=== PATIENT | female | born 1945 | race Caucasian/White ===

== ENCOUNTER 2020-04-20 10:37 | Outpatient (CLI) | payer MEDICARE, SELFPAY ==
--- NOTE | ~2020-04-20 | MM_ITS ---
EXAMINATION: MM screening evy BI w red HISTORY: Screening mammogram TECHNIQUE: Craniocaudal and mediolateral oblique 3-D tomosynthesis images were obtained and synthetic 2-D images were generated. CAD analysis was submitted and interpreted. COMPARISON: 07/18/2018, 11/29/2016, 01/22/2015 bilateral digital screening mammogram examinations BREAST PARENCHYMAL COMPOSITION: There are scattered areas of fibroglandular density. FINDINGS: There is no evidence of suspicious mass, calcification, or architectural distortion to sugg est malignancy in either breast. There has been no suspicious interval change. IMPRESSION: 1. No mammographic evidence of malignancy. 2. Recommend routine screening mammography in one year. BI-RADS Category 1: Negative Reviewed, dictated and finalized at location A.
== END 2020-04-20 10:38 | disposition home or self-care (01) ==
PROVIDERS: PCP Internal Medicine; Visit Provider Internal Medicine
DX: Z12.31 Encounter for screening mammogram for malignant neoplasm of breast (principal)
CPT/HCPCS: 77063; 77067

== ENCOUNTER 2021-05-18 11:00 | Outpatient (RCR) | payer MEDICARE, SELFPAY ==
--- NOTE | 2021-04-13 12:40 | PTOPEVAL ---
Thank you for referring Alma Akbar to [facility].? The patient is scheduled to be seen for therapy? 2 x/week for 5 weeks. Please review, sign, date and return this plan of care NAOMI. I agree with and certify that the following plan of care is medically necessary. Referring Physician Date Attending Provider: Gemma Sneed PA-C Diagnosis hamstring and calf pain - right Onset 08/19 Additional Evaluation Detail She walks 4 miles a day. Subjective Information States she has had a Query Text:As Reported By Patient/ progression of her limitations Family with her vision. In 08/19 she fell over the vacuum lamp cleaner street light, landing on her knees. The pain became worse. She did not see a MD until 04/01/21. She c/o increased pain after prolonged sitting, negotiating steps, squatting motion, transfer in/out car, moving in bed. The pain will wake her at night. She reports improved pain with the medication from the MD. She also had a fall last week when she tripped over something on the floor. She was told the tendon in the back of her leg is pulled . Diagnostic Tests X-Rays For This Problem Yes: post apect of knee joint has an issue? Pain Assessment Left Leg(s) Reported Pain Level 0 Pain Frequency Intermittent Lowest Pain Intensity 0 Greatest Pain Intensity 5 Pain Aggravating Factors Prolonged Position Right Posterior Leg(s) Reported Pain Level 1 Pain Description Numbness Pain Frequency Chronic Lowest Pain Intensity 1 Greatest Pain Intensity 10 Pain Aggravating Factors Exercise/Activity,Prolonged Position,Sitting,Stair Climbing,Weight Bearing/ Standing Lower Extremity Range of Motion Knee Range of Motion Right Knee Flexion Range of Motion - Active 120 Knee Extension Range of Motion - Active 0 Left Knee Flexion Range of Motion - Active 0 Knee Extension Range of Motion - Active 120 Knee Range of Motion Limitations Pain Ankle/Foot Range of Motion Left Ankle Dorsiflexion With Knee Extension 0 Ankle Plantarflexion Range of Motion - 40
--- NOTE | 2021-05-06 07:20 | PCPTNOTE ---
Patient called & cancelled scheduled appointment this date due to having something come up.
--- NOTE | 2021-05-18 11:31 | PTOPEVAL ---
Physical Therapy Discharge Note Thank you for referring Alma Akbar to [facility].?Alma has attended 9 therapy visit to address LE impairments related to recent falls. See summary below for progress. She has reached her maximal potential with skilled therapy services at this time. Will DC PT with recommendations for her to continue with her HEP. Please review, sign, date and return this discharge plan NAOMI. I agree with and certify that the following plan of care is medically necessary. Referring Physician Date Admitting Provider: Attending Provider: KAYKAY Allen Diagnosis hamstring and calf pain - right Onset 08/19 Subjective Information She reports she has improved Query Text:As Reported By Patient/ with therapy with improved Family ability to get out of a chair, walk and negotiate steps, transfer in/out car, moving in bed. Denies any pain at night . Denies any falls since starting therapy. She was able to walk 5 miles yesterday without difficulty. Pain Assessment Left Leg(s) Reported Pain Level 0 Lowest Pain Intensity 0 Greatest Pain Intensity 0 Right Posterior Leg(s) Reported Pain Level 0 Lowest Pain Intensity 0 Greatest Pain Intensity 0 Lower Extremity Range of Motion Knee Range of Motion Right Knee Flexion Range of Motion - Active 120 Knee Extension Range of Motion - Active 0 Left Knee Flexion Range of Motion - Active 125 Knee Extension Range of Motion - Active 0 Ankle/Foot Range of Motion Left Ankle Dorsiflexion With Knee Extension 0 Ankle Plantarflexion Range of Motion - 45 Ankle Eversion Range of Motion - Active 20 Ankle Inversion Range of Motion - Active 35 Right Ankle Dorsiflexion With Knee Extension 4 Ankle Plantarflexion Range of Motion - 50 Ankle Eversion Range of Motion - Active 20 Ankle Inversion Range of Motion - Active 20 Lower Extremity Muscle Strength Testing Hip Strength Right Hip Flexion Strength 4 Good Hip Extension Strength 3 Fair Hip Abduction Strength 3 Fair Left Hip Flexion Strength 4 Good Hip Extension Strength 3 Fair Hip Abduction Strength 3 Fair Knee Strength Right Knee Flexion Strength 4 Good Knee Extension Strength 4+ Good + Left Knee Flexion Strength 4 Good Knee Extension Strength 4+ Good + Ankle Strength Right Ankle Dorsiflexion Strength 5 Normal Ankle Eversion Strength 5 Normal Ankle Inversion Strength 5 Nor
== END 2021-05-18 13:42 | disposition home or self-care (01) ==
LOC: ANHPT 11:00
PROVIDERS: PCP Internal Medicine
DX: M79.661 Pain in right lower leg (principal); S76.311D Strain of muscle, fascia and tendon of the posterior muscle group at thigh level, right thigh, subsequent encounter
CPT/HCPCS: 97110; 97140; 97162

== ENCOUNTER 2021-12-30 08:50 | Inpatient (IN) | payer MEDICARE, SELFPAY ==
[2021-12-30] VITALS (25 sets, daily range): BP systolic 122–186; BP diastolic 53–90; PULSE 60–76; RESP 11–21; TEMP 36.8–37; O2SAT 94–99; BMI 35.6
--- NOTE | ~2021-12-30 | CT_ITS ---
EXAMINATION: CT brain wo con DATE: 12/30/2021 10:49 INDICATION: Confusion and bilateral lower limb weakness TECHNIQUE: Computed tomography (CT) of the head was performed without intravenous contrast. Sagittal and coronal reconstructions were performed. The mA was adjusted according to patient size. Iterative reconstruction technique was employed. The dose-length product was 605.33 mGy-cm. COMPARISON: None FINDINGS: No acute intracranial hemorrhage, acute infarction or abnormal extra axial fluid collection. There is mild scattered white matter hypoattenuation consistent with chronic small vessel ischemic disease. S ymmetric prominence of the sulci consistent with mild age-appropriate diffuse cerebral volume loss. Ventricles are normal and symmetric. No mass/mass effect. Changes of bilateral intraocular lens repla cement. The orbits, paranasal sinuses and mastoid air cells are normal. 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 IMPRESSION: 1. No acute intracranial process. 2. Age-related changes including mild diffuse volume loss and mild scattered white matter hypoattenua tion consistent with chronic small vessel ischemic disease. Reviewed, dictated and finalized at location B. IMPRESSION: 1. No acute intracranial process. 2. Age-related changes including mild diffuse volume loss and mild scattered wh ite matter hypoattenuation consistent with chronic small vessel ischemic diseas e.
--- NOTE | ~2021-12-30 | CT_ITS ---
EXAMINATION: CT cervical spine wo con DATE: 12/31/2021 10:12 INDICATION: Neck pain. Weakness. TECHNIQUE: Computed tomography (CT) of the cervical spine was performed without intravenous contrast. Automated exposure control and iterative reconstruction technique were employed. The dose-length pro duct was 487.88 mGy-cm. COMPARISON: None FINDINGS: Bone alignment is normal. Vertebral body heights and intervertebral disc heights are normal . The following disc levels are specifically discussed: C2-C3: There is no uncovertebral joint osteoarthritis. There is mild bilateral facet joint osteoarthr itis. There is no neural foraminal stenosis. There is no central canal stenosis. C3-C4: There is no uncovertebral joint osteoarthritis. There is mild right and moderate left facet joan int osteoarthritis. There is no neural foraminal stenosis. There is no central canal stenosis. C4-C5: There is mild left uncovertebral joint osteoarthritis. There is mild right facet joint osteoar thritis. There is ankylosis of left facet joint with mild hypertrophy. There is mild left neural fora cora stenosis. There is no central canal stenosis. C5-C6: There is moderate right and mild left uncovertebral joint osteoarthritis. There is mild right facet joint osteoarthritis. There is no neural foraminal stenosis. There is no central canal stenosis . C6-C7: There is no uncovertebral joint osteoarthritis. There is moderate right and mild left facet joan int osteoarthritis. There is no neural foraminal stenosis. There is no central canal stenosis. C7-T1: There is no uncovertebral joint osteoarthritis. There is severe right and mild left facet join t osteoarthritis. There is mild right neural foraminal stenosis. There is no central canal stenosis. IMPRESSION: 1. No fracture. 2. Mild cervical spondylosis. Reviewed, dictated and finalized at location A.
--- NOTE | ~2021-12-30 | CT_ITS ---
EXAMINATION: CTA brain carotid DATE: 12/30/2021 12:02 CDT INDICATION: Slurred speech TECHNIQUE: Computed tomographic angiography (CTA) of the head was performed with 100 mL Omnipaque-300 intravenous contrast. CTA of the neck was performed with intravenous contrast. The dose-length produ ct was 1112.39 mGy-cm. Maximum intensity projection and volume rendered 3D-reconstructions were creat ed by the technologist on a separate workstation. Automated exposure control and iterative reconstruction technique were employed. COMPARISON: CT head dated 12/30/2021. FINDINGS: HEAD CTA: The anterior, middle and posterior cerebral arteries are symmetric without significant sten osis, occlusion or aneurysm. There is mild atherosclerosis. There is a dominant left vertebral artery . Lung apices are unremarkable. NECK CTA: There is atherosclerosis of the aortic arch and carotid arteries which are symmetric. No ce rvical lymphadenopathy. Thyroid gland is unremarkable. Lung apices are normal. No significant stenosi s, dissection or occlusion. There is 0% stenosis of the proximal right internal carotid artery relative to normal distal artery l umen diameter (NASCET criteria). There is 0% stenosis of the proximal left internal carotid artery re lative to normal distal artery lumen diameter. IMPRESSION: 1: No significant vascular abnormality of the intracranial or carotid arteries. No significant stenos is, occlusion, aneurysm or dissection. Reviewed, dictated and finalized at location A. IMPRESSION: 1: No significant vascular abnormality of the intracranial or carotid arteries. No significant stenosis, occlusion, aneurysm or dissection.
--- NOTE | ~2021-12-30 | CT_ITS ---
EXAMINATION: CT brain wo con DATE: 12/31/2021 08:42 INDICATION: Transient ischemic attack versus seizure TECHNIQUE: Computed tomography (CT) of the head was performed without intravenous contrast. Sagittal and coronal reconstructions were performed. The mA was adjusted according to patient size. Iterative reconstruction technique was employed. The dose-length product was 681.00 mGy-cm. COMPARISON: head CT dated 12/30/2021 FINDINGS: No acute intracranial hemorrhage, acute infarction or abnormal extra axial fluid collection. Small ol d lacunar infarct at the anterior limb of the right internal capsule. There is mild scattered white m atter hypoattenuation consistent with chronic small vessel ischemic disease. Ventricles are normal a nd symmetric. No mass/mass effect. The orbits, paranasal sinuses and mastoid air cells are normal. IMPRESSION: 1. No acute intracranial process. 2. 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 Reviewed, dictated and finalized at location B. IMPRESSION: 1. No acute intracranial process. 2. 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
--- NOTE | ~2021-12-30 | CT_ITS ---
EXAMINATION: CT thoracic lumbar wo con DATE: 12/31/2021 10:13 INDICATION: Entire spine pain. Generalized weakness. TECHNIQUE: Computed tomography (CT) of the thoracic and lumbar spine was performed without intravenou s contrast. Automated exposure control and iterative reconstruction technique were employed. The dose -length product was 1852.88 mGy-cm. COMPARISON: None FINDINGS: CT THORACIC SPINE: There is a large sliding hiatal hernia. There are trace pleural effusions. A calci fied right lung nodule and calcified right hilar lymph nodes are consistent with old granulomatous di sease. Partially visualized are pacer wires. There is kyphosis and 8 degrees dextrocurvature of thora cic spine. There is mild chronic anterior wedging of T6 and T7 vertebral bodies. There is moderately decreased disc height at T3-T4. There is moderately decreased disc height at T4-T5 and T5-T6 with chriss dging endplate osteophytes. There is severely decreased disc height from T6-T7 through T8-T9 with end plate remodeling. There is mildly decreased disc height at T9-T10 and T10-T11. There is multilevel fa cet joint osteoarthritis, severe bilaterally at T3-T4. There is multilevel mild neural foraminal sten osis bilaterally. On the left, there is moderate neural foraminal stenosis at T3-T4. No central canal stenosis. CT LUMBAR SPINE: There is an electrode in left S3 neural foramen. There is 9 degrees levocurvature o f lumbar spine. There is 3 mm retrolisthesis of L5 on S1. Vertebral body heights are normal. There is mildly decreased disc height at L2-L3 and L3-L4 and severely decreased disc height at L5-S1 with end plate remodeling. The following disc levels are specifically discussed: L1-L2: The disc does not extend beyond the endplate margin. There is mild bilateral facet joint osteo arthritis. There is no neural foraminal stenosis. There is no central canal stenosis. L2-L3: The disc is bulging. There is mild right facet joint osteoarthritis. There is mild bilateral n eural foraminal stenosis. There is mild central canal stenosis. L3-L4: The disc is bulging. There is mild bilateral facet joint osteoarthritis. There is mild bilater al neural foraminal stenosis. There is mild central canal stenosis. L4-L5: The disc is bulging. There is no facet joint osteoarthritis. There is mild bilateral neural fo raminal stenosis. There is mild central canal stenosis. L5-S1: The disc is bulging. There is mild right and moderate left facet joint osteoarthritis. There i s mild bilateral neural foraminal stenosis. There is no central canal stenosis. IMPRESSION: 1. Severe thoracic and lumbar spondylosis. 2. Large sliding hiatal hernia. Reviewed, dictated and finalized at location A.
--- NOTE | 2021-12-30 09:38 | ECG_ITS ---
Measurements Intervals [place] Rate: 63 P: 88 [place]: 224 QRS: -55 QRSD: 191 T: 111 QT: 478 QTc: 492 Interpretive Statements ELECTRONIC ATRIAL PACEMAKER ELECTRONIC VENTRICULAR PACEMAKER NO FURTHER INTERPRETATION POSSIBLE NO PREVIOUS ECG AVAILABLE FOR COMPARISON Electronically Signed On 12-30-2021 17:47:06 CDT by Seng Bright M.D.
[2021-12-30 09:53] LABS: Basophils Percent Auto 0.7 % (0.2-1.2); Eosinophils Absolute Auto 0.1 K/mm3 (0-0.3); Eosinophils Percent Auto 3.1 % (0-4.4); Hemoglobin 12.3 g/dL (12.0-15.0); Immature Granulocyte Absolute 0.02 K/mm3 (0.00-0.031); Immature Granulocyte Percent A 0.5 % (0-0.5); Lymphocytes Absolute Auto 0.76 K/mm3 (0.9-3.2); Lymphocytes Percent Auto 17.8 % (18.3-44.2); Mean Corpuscular HGB Conc 31.5 g/dl (32-36); Mean Corpuscular Hemoglobin 29.8 pg (26-34); Mean Corpuscular Volume 94.4 fl (80-100); Mean Platelet Volume 9.9 fl (7.4-10.4); Monocytes Absolute Auto 0.3 K/mm3 (0.1-0.6); Monocytes Percent Auto 7.5 % (2.6-8.5); Neutrophils Percent Auto 70.4 % (45.5-73.1); Platelet Count Result 177 k/mm3 (150-375); Red Blood Count 4.13 M/mm3 (4.2-5.4); Red Cell Distribution Width 13.6 % (11.5-14.5); White Blood Count 4.3 K/mm3 (4.5-10.0)
--- NOTE | 2021-12-30 09:54 | PC.NURSE ---
Pt ambulated to the bathroom with no issue
[2021-12-30 10:08] LABS: Alanine Aminotransferase 14 U/L (6-35); Albumin Level 3.8 g/dL (3.5-5.1); Alkaline Phosphatase 31 U/L (38-126); Anion Gap 3 mmol/L (8-16); Aspartate Amino Transferase 24 U/L (14-36); Bilirubin,Total 0.3 mg/dL (0.2-1.3); Blood Urea Nitrogen 25 mg/dL (7-17); Calcium 8.5 mg/dL (8.4-10.2); Carbon Dioxide 31 mmol/L (22-30); Chloride 101 mmol/L (98-107); Estimated CRCL calculation 70 ml/min; Estimated Glomerular Filt Rate > 60; Glucose 97 mg/dL (65-110); Potassium 3.8 mmol/L (3.4-5.0); Sodium 135 mmol/L (137-145)
[2021-12-30 10:09] LABS: Appearance Urine Clear (Clear); Bilirubin Urine Negative (Negative); Blood Urine Trace-lysed (Negative); Color Urine Yellow (Yellow); Glucose Urine UA Negative (Negative); Ketones Urine Negative (Negative); Leukocyte Esterase Ur Trace LEU/UL (Negative); Nitrate Urine Negative (Negative); Protein Urine 1+ mg/dL (Negative); Urobilinogen Urine 0.2 mg/dL (<2.0)
[2021-12-30 10:24] LABS: Bacteria Urine Trace /hpf; Squamous Epithelial Cell Urine Occasional /hpf (Few)
--- NOTE | 2021-12-30 10:39 | ED.AMS ---
HPI - Altered Mental Status General Chief Complaint: Weakness Stated Complaint: weakness Time Seen by Provider: 12/30/21 10:27 History of Present Illness HPI narrative: Pt states that she developed confusion, facial pain, eye burning and felt generally weak like she was going to pass out. Pt denied CP or SOB. Pt made it to BR and seemed to improve over 10-15 minutes. Pt made it to chair and called son. Pt had two other similar episodes over the last two hours that also resolved. Pt says she felt like she was going to . Related Data Home Medications Medication Instructions Recorded Confirmed loratadine 10 mg tablet (Allergy 20 mg PO DAILY 08/20/19 10/29/21 Relief (loratadine)) ginkgo biloba leaf extract 120 cap PO BID 10/29/21 10/29/21 mg-bacopa leaf extract 40 mg capsule celecoxib 200 mg capsule cap 12/30/21 Allergies Allergy/AdvReac Type Severity Reaction Status Date / Time meperidine Allergy Severe respiratory Verified 12/30/21 11:44 failure scopolamine Allergy Severe RESP Verified 12/30/21 11:44 DISTRESS DUE TO THROAT CLOSING Review of Systems Review of Systems: All systems reviewed & are unremarkable except as noted in HPI and below PMFSH Past Medical History Medical History Anemia Anxiety Bilateral leg cramps Cardiac pacemaker Gastric ulcer GI bleed Hyperlipidemia Hypertension Prediabetes Surgical History Surgical History Status post cardiac pacemaker procedure Family History Family History Mother Patient's mother is Family history of Alzheimer's disease Family history of malignant neoplasm Sibling Brain tumor Social History Social History Smoking status: Never smoker Second hand tobacco smoke exposure: No Alcohol intake: current Alcohol use details: socially Substance use: never Exam Const: General: healthy appearing, no acute distress and alert Orientation/consciousness: patient oriented x3 Limitations: no limitations HENMT: Head: normal to inspection Eyes: Conjunctivae: conjunctivae normal Pupils: Equal, round and reactive pupils present EOM: EOMs intact bilaterally Neck: Neck: normal visual inspection, no lymphadenopathy and no meningeal signs Chest: Chest palpation & inspection: normal inspection of the chest Resp: Effort & Inspection: normal respiratory effort Auscultation: clear to auscultation bilaterally Cardio: Rate: regular rate Rhythm: regular rhythm GI: GI Palp: Yes Soft to palpation Auscultation: normal bowel sounds Back/Spine/Pelvis: Back: no CVA tenderness Skin: General skin exam: normal color Rashes: no rashes Wounds: no wounds Neuro: General: patient oriented x3, moves all extremities, no meningeal signs, no focal motor deficits and CN's II-XI intact bilaterally Cranial nerves: Yes Nystagmus not present Speech: normal speech Gait exam (Neuro): Normal gait present Extrem: General: normal to inspection and no clubbing, cyanosis or edema Psych: Mental Status: mental status grossly normal Affect: normal affect Attitude: cooperative Course Course Emergency Course: 1115, called into room by Rn. Pt acutely very slurred speech with facial droop, weak b/l but not one sided tried to follow commands but not able to perform finger nose, able to platform supervisor and seems to be equal. called Dr Sheffield neurology, said order CTA head and neck [address] pt says that was a bad one. Pt hs clear speech and a non focal neuro exam and is alert and oriented x3. Pt says she felt like she was dying and couldn't breathe during spell. 1208, pt again can't speak, incontinent of urine, minimally responsive with, not able to follow commands, CTA shows nothing acute, but
[2021-12-30 10:44] LABS: Add Urine Microscopic? YES
[2021-12-30 11:07] LABS: Troponin I < 0.012 ng/mL (0.000-0.034)
--- NOTE | 2021-12-30 11:14 | PC.NURSE ---
Addendum entered by Deandra Jackman RN 12/30/21 11:41: Son called out* Original Note: called out and asked for staff to come into room. Pt attempting to talk and speech is very slurred and garbled. MD at bedside at this time
--- NOTE | 2021-12-30 11:20 | PC.NURSE ---
Pt dry heaving and becoming diaphoretic at this time. VORB for 4 mg Zofran
--- NOTE | 2021-12-30 11:25 | PC.NURSE ---
Pt having pursed lips and breathing abnormally, pt diaphoretic, and O2 dropping to 87% for periods of time. Placed pt on 2L of O2 at this time
--- NOTE | 2021-12-30 11:40 | PC.NURSE ---
Pt taken to CT scan at this time on rn cardiac
[2021-12-30] MEDS: ONDANSETRON INJ 4 MG/2 ML VIAL IV PUSH (11:47)
--- NOTE | 2021-12-30 11:59 | PC.NURSE ---
Pt back to room from CT. Pt alert, oriented, and speaking in full sentences. Pts neuro exam normal at this time.
--- NOTE | 2021-12-30 12:07 | PC.NURSE ---
1202: Pt suddenly became diaphoretic, breathing abnormal, making choking noises, unable to speak again. MD notified of change in pt status.
--- NOTE | 2021-12-30 12:12 | PC.NURSE ---
Pt incontinent of bowel at this time
--- NOTE | 2021-12-30 12:17 | PC.NURSE ---
Pt able to speak at this time. C/o bilateral leg pain. states that they are cramping. Pt states that she can feel the episodes coming on before they happen.
--- NOTE | 2021-12-30 12:27 | PC.NURSE ---
While attempting to place pt on a bedpan she became diaphoretic and mumbles i feel it Pt then states having pursed lips, becomes very pale, and gagging. Pt then unable to speak. Pt able to squeeze my hand but unable to move extremities up.
--- NOTE | 2021-12-30 12:33 | PC.NURSE ---
Pt back to being able to speak at this time.
--- NOTE | 2021-12-30 12:45 | PC.NURSE ---
1244: Son comes out and notifies this RN that pt is beginning to have another episode. Pt diaphoretic, speech slurred, unable to lift extremities.
--- NOTE | 2021-12-30 12:55 | PC.NURSE ---
1255: Pt back to baseline, speaking clearly
[2021-12-30] MEDS: LORazepam INJ (*CRX) 2 MG/ML VIAL 1 MG IV PUSH (12:57)
--- NOTE | 2021-12-30 13:04 | PC.NURSE ---
1304:Son notified staff pt having another episode. Pt mumbling, diaphoretic
--- NOTE | 2021-12-30 13:08 | PC.NURSE ---
Pt back to baseline
--- NOTE | 2021-12-30 13:19 | PC.NURSE ---
1317: While in room with pt checking BS pt speech becomes slurred. pt able to squeeze my hand with both hands and lift arms approx 5-6 in. Pt able to wiggle toes when asked. Pt has pursed lips
[2021-12-30 13:24] LABS: Glucose Point of Care 124 mg/dl (65-105)
--- NOTE | 2021-12-30 13:31 | PC.NURSE ---
1323: back to baseline
--- NOTE | 2021-12-30 14:37 | PM.IMHP ---
H&P: [facility] History of Present Illness Date/Time: 12/30/21 14:37 Chief Complaint: Acute confusion, weakness and visual changes Narrative: This 76-year-old female patient with significant past medical history of chronic anemia, anxiety, bilateral leg cramps, presents a bladder stimulator for incontinence, cardiac pacemaker, GI bleed with gastric ulceration, hyperlipidemia, hypertension, prediabetes status post pacemaker placement presents to the emergency room today after she endorses waking up this morning to a painful feeling in her eyes with blurry vision. She reports that she felt like her legs were so heavy and she was going to pass out. She managed to get into the restroom when the blurriness resolved, and then she went back to bed. Upon plain back down in bed she reports that the blurriness of her vision again came back in at this point she could not talk. She notes that she was trying to get her words out but she could not talk only grunts came out. This lasted for approximately 10 minutes and then eventually resolved on its own. She was then able to call her son who arrived at her home after she had just had 1 of these ?episodes. He reports that when she got there she wishes very tired. He did not identify any neurological deficit. Patient has no history of any seizure activity and or CVA. She is not on any anticoagulation. Patient's burlap roll coverer is Dr. Jones here and she also sees Dr. Jorgensen at [facility]. Here in the ED workup was started that was significant for 3 episodes of the patient being acutely unable to speak or having slurred speech with facial droop, being unable to follow commands and is fast as it comes on very resolved. Attempt to transfer to outside facility tertiary center at [facility] was made by the ER physician but they were unable to accept the patient at this time. After discussing with our neurologist here CTA of the head and neck was performed that was negative for any acute findings and our Neurologist, Dr. Sheffield is agreeable to admission here. Labs performed in the ER was unremarkable and so was imaging. Patient also denies any new changes to her medications. [place] and she denies any chemical exposures. Currently she reports that she does feel weak. She denies any chest pain, dyspnea, nausea, vomiting, diarrhea. Review of Systems Review of Systems: As noted in HPI PMFSH Past Medical History Medical History Anemia Anxiety Bilateral leg cramps Cardiac pacemaker Gastric ulcer GI bleed Hyperlipidemia Hypertension Prediabetes Surgical History Surgical History Status post cardiac pacemaker procedure Family History Family History Mother Patient's mother is Family history of Alzheimer's disease Family history of malignant neoplasm Sibling Brain tumor Social History Social History Smoking status: Never smoker Second hand tobacco smoke exposure: No Alcohol intake: current Alcohol use details: socially Substance use: never Meds Home Medications and Allergies Home Medications Medication Instructions Recorded Confirmed Type loratadine 10 mg tablet (Allergy 20 mg PO DAILY 08/20/19 10/29/21 History Relief (loratadine)) ferrous sulfate 325 mg (65 mg 325 mg PO BID #180 tabs 04/13/21 10/29/21 Rx iron) tablet losartan 50 mg tablet 50 mg PO DAILY #90 tabs 10/13/21 10/29/21 Rx ginkgo biloba leaf extract 120 cap PO BID 10/29/21 10/29/21 History mg-bacopa leaf extract 40 mg capsule escitalopram oxalate 10 mg tablet 10 mg PO DAILY #90 tabs 11/15/21 Rx (Lexapro) omeprazole 40 mg capsule,delayed See Rx Instructions .Route 12/07/21 Rx release .COMPLEX #90 caps celecoxib 200 mg capsule cap 12/30
--- NOTE | 2021-12-30 15:00 | PC.NURSE ---
Pt states she is feeling much better, pt appearance better than it has been since arrival. Pt wanting to get up to bathroom. Pt able to get up to bedside commode with no difficulty. RN standing by for assistance.
[2021-12-30 15:30] LABS: SARS-CoV-2 RNA PCR Negative
--- NOTE | 2021-12-30 17:08 | ADMGEN ---
This patient, Alma Akbar, was admitted to IMU Room 231-01. Patient/family oriented to hospital policies and general routines including ID bracelet, bed and alarms, visiting hours, pain management, procedures, bathroom and other care routines, personal items, smoking policy, room service/diet, and visiting hours. Information on how to activate the Rapid Response Team has been discussed. Patient/Family are encouraged to report perceived risks to care and to ask questions if they do not understand what they are told or what they should do.
[2021-12-30] MEDS: ACETAMINOPHEN 500 MG TABLET 1000 MG PO (18:33)
[2021-12-30] MEDS: MENTHOL 10% / METHYL SALICYLATE 15% 57 GM TUBE 1 APPLIC TOPICAL (23:47)
[2021-12-31] VITALS (19 sets, daily range): BP systolic 119–150; BP diastolic 50–93; PULSE 59–78; RESP 14–24; TEMP 36.6–36.9; O2SAT 92–100
[2021-12-31 00:29] LABS: Glucose Point of Care 100 mg/dl (65-105)
[2021-12-31] MEDS: LORazepam INJ (*CRX) 2 MG/ML VIAL 1 MG IV PUSH ×2 (00:42→06:12)
[2021-12-31] MEDS: DEXTROSE 5%/0.45% SOD CHL 1,000 ML 75 ML IV CONT ×2 (00:52→16:49)
[2021-12-31] MEDS: levETIRAcetam 1000MG/NACL100ML 1,000 MG/100 ML BAG 400 MG IVPB ×4 (00:57→20:05)
[2021-12-31 05:15] LABS: Basophils Percent Auto 0.3 % (0.2-1.2); Eosinophils Percent Auto 0.3 % (0-4.4); Hematocrit 37.9 % (37.0-47.0); Hemoglobin 12.7 g/dL (12.0-15.0); Immature Granulocyte Absolute 0.02 K/mm3 (0.00-0.031); Immature Granulocyte Percent A 0.3 % (0-0.5); Lymphocytes Absolute Auto 0.86 K/mm3 (0.9-3.2); Lymphocytes Percent Auto 11.7 % (18.3-44.2); Mean Corpuscular HGB Conc 33.5 g/dl (32-36); Mean Corpuscular Hemoglobin 30.3 pg (26-34); Mean Corpuscular Volume 90.5 fl (80-100); Mean Platelet Volume 9.8 fl (7.4-10.4); Monocytes Absolute Auto 0.3 K/mm3 (0.1-0.6); Neutrophils Absolute Auto 6.1 K/mm3 (1.3-6.7); Neutrophils Percent Auto 83.4 % (45.5-73.1); Platelet Count Result 199 k/mm3 (150-375); Red Blood Count 4.19 M/mm3 (4.2-5.4); Red Cell Distribution Width 13.3 % (11.5-14.5); White Blood Count 7.3 K/mm3 (4.5-10.0)
[2021-12-31 05:37] LABS: Alanine Aminotransferase 15 U/L (6-35); Albumin Level 3.8 g/dL (3.5-5.1); Alkaline Phosphatase 31 U/L (38-126); Anion Gap 5 mmol/L (8-16); Aspartate Amino Transferase 27 U/L (14-36); Bilirubin,Total 0.3 mg/dL (0.2-1.3); Blood Urea Nitrogen 15 mg/dL (7-17); Calcium 8.3 mg/dL (8.4-10.2); Carbon Dioxide 25 mmol/L (22-30); Chloride 98 mmol/L (98-107); Estimated CRCL calculation 95 ml/min; Estimated Glomerular Filt Rate > 60; Glucose 117 mg/dL (65-110); Potassium 3.6 mmol/L (3.4-5.0); Sodium 128 mmol/L (137-145)
[2021-12-31] MEDS: diazePAM INJ (*CRX) 10 MG/2 ML SYRINGE 5 MG IM (06:51)
--- NOTE | 2021-12-31 07:33 | PC.NURSE ---
Pt has had 5 episodes (possible seizures) on mine shifter. During these episodes, she becomes diaphoretic, puffs her breath, and is unable to move her extremities. She is aware of what is happening and attempts to speak but has difficulty moving her mouth. Pt physically can not follow any commands but tries. The 5th episode began around 5 am and is still continuing. She is now confused, does not know where she is and stated her first name and maiden name. 2334 - 2348 (14 minutes); at 2349 pt began to dry heave 1203 - 1235 (32 minutes); at 1217 pt began to dry heave 1256 - 0115 (19 minutes) 0135 - unknown end time 0500 - cont. Order for lima obtained by Dr Cohen who is aware of pt's bladder stimulator. Dr Cohen also ordered fluids. Dr Cohen made aware that pt is now confused. This last episode has not ended. Dr Sheffield also updated. Head CT was ordered, change to NPO, 1 time dose of valium ordered. Daughter is extremely upset about pt's change in status and wants patient to be transferred to [facility] or a different facility. Charge nurse and Hoof And Shoe Inspector made aware of situation.
--- NOTE | 2021-12-31 09:43 | WPDNEUROLOGY ---
Neurology EEG Report General Information Date of Study: 12/31/21 TEST eeg DIAGNOSIS Possible seizures CONDITION OF RECORDING drowsy and sleep EEG NUMBER [id number] CLINICAL HISTORY recurrent possible seizures EEG DESCRIPTION basic resting occipital frequency consists of low-voltage 15 to 18 hertz per 2nd beta. Low-voltage beta activity seen throughout the tracing anteriorly as well. Bilateral symmetrical sleep activity seen during sleep. Multiple muscle artifacts are noted throughout the tracing. Hyperventilation not done. Photic stimulation not done. Non paroxysmal. Nonfocal. Nonlateralizing. IMPRESSION No significant abnormalities noted throughout the tracing which is compromised by the multiple muscle and movement artifacts
--- NOTE | 2021-12-31 09:46 | WPDCNINT ---
Assessment and Plan Assessment and plan (1) Seizure: Code(s): R56.9 - Unspecified convulsions Status: Acute Assessment and Plan: Patient was transfer the ICU for possible seizure activity. I was called to the intermediate/step-down unit and told that the patient was having seizure activity and was given Valium 10 mg IM and lorazepam. Patient had some sonorous respirations. But upon my arrival patient was getting EEG done, was awake, alert, oriented x3, nonfocal will to answer questions and hold conversation appropriately -neurology has been consulted -patient has been loaded with Keppra, also loaded with valproic acid -continue Keppra per Neurology -EEG did not show any seizure activity (2) Altered mental status: Code(s): R41.82 - Altered mental status, unspecified Status: Acute Assessment and Plan: Patient presented to the hospital on 12/30/2021 with altered mental status, presyncope, some slurring of speech and blurring of vision. -CT brain on 12/30: No acute intracranial process, age-related changing, chronic small-vessel ischemic disease -CTA head and neck on 12/30: No significant vascular abnormality of the intracranial or carotid arteries. No significant stenosis, occlusion, aneurysm or dissection. -repeat CT on 12/31: No acute intracranial process chronic small vessel ischemic disease (3) Generalized weakness: Code(s): R53.1 - Weakness Status: Acute Assessment and Plan: According the Neurology as patient had positive plantar reflexes, that is the reason we obtained a CT of cervical, thoracic and lumbar spine with results as below: - CT cervical spine did not show any fracture, mild cervical spondylosis -CT thoracic and lumbar spine showed severe thoracic and lumbar spondylosis, large sliding hiatal hernia -patient will require PT/OT (4) DVT prophylaxis: Code(s): Z29.9 - Encounter for prophylactic measures, unspecified Status: Acute Assessment and Plan: Enoxaparin (5) History of gastric ulcer: Code(s): Z87.11 - Personal history of peptic ulcer disease Status: Acute Assessment and Plan: Protonix Plan Patient to be transferred to [facility] -discussed with hospitalist was agreed to except the patient and Dr. Rodriguez will consult for Neurology Additional Plan Discussed with daughter and son and updated with patient's condition, plan of care. They are aware that the patient be transferred for higher level of care Code status:Full code Critical care time spent: 49 minutes This dictation may have been done utilizing a voice recognition system. Attempts have been made to correct errors. However, there may be uncorrected grammatical, spelling, and recognition errors present. Due to a high probability of clinically significant, life threatening deterioration, the patient required my highest level of preparedness to intervene emergently and I personally spent this critical care time directly and personally managing the patient. This critical care time included obtaining a history; examining the patient; pulse oximetry; ordering and review of studies; arranging urgent treatment with development of a management plan; evaluation of patient's response to treatment; frequent reassessment; and discussions with other providers. It was exclusive of separately billable procedures and treating other patients and teaching time. Please see Assessment and Plan section and the rest of the note for further information on patient assessment and treatment Airline Reservationist Consult Note Consult date: 12/31/21 Reason for consult: Seizures HPI: Alma Akbar is a 76 year old female past medical history of anemia, anxiety, leg cramps, pacemaker, gastric ulcer, GI bleed, hyperlipidemia, essential hypertension presented the ED on 12/30/2021 with complains of blurry vision, presyncope, generalized weakness. She does not have a history of C
[2021-12-31] MEDS: PANTOPRAZOLE SODIUM IV 40 MG VIAL IV PUSH (11:08)
--- NOTE | 2021-12-31 12:07 | PM.TDS ---
Transfer Discharge Sum: Prov Provider Date of admission: 12/30/21 13:31 Primary care physician: Johnathan Jones DO Admitting clinician: Timi Spicer MD Consults: 12/31/21 Consult to Physician Routine Comment: Consulting Provider: Renzo Simmons Reason for consultation: icu transfer Has provider been notified: Yes Consult to Physician Routine Comment: Consulting Provider: Jack Sheffield Reason for consultation: possible seizures Has provider been notified: Yes Attending physician on discharge: Radha Dyson Discharging clinician: Radha Dyson Anticipated date of transfer: 12/31/21 Receiving physician/facility: [facility] DS: Admitting Diagnosis Discharge Date 12/31/21 Admitting Diagnosis (1) Neurological deficit, transient: ?Code(s): R29.818 - Other symptoms and signs involving the nervous system ?Status:?Acute ?Assessment and Plan: - Neuro checks Q4 hrs - EEG - Consult Neurology - Unable to do MRI secondary to bladder stimulator as well as pacemaker. -follow vital signs and labs. -seizure precautions -fall precautions -p.r.n. meds ordered if seizure activity is identified. -telemetry -interrogate pacemaker. -stat Mag -consider psychiatric consult based upon neurology findings. (2) Anemia: ?Code(s): D64.9 - Anemia, unspecified ?Status:?Acute ?Assessment and Plan: -monitor H&H with daily labs. -continue supplemental ferrous sulfate 325 mg. (3) Leg cramps: ?Code(s): R25.2 - Cramp and spasm ?Status:?Acute ?Assessment and Plan: -check stat magnesium level. DS: Discharge Diagnosis Discharge Diagnosis (1) History of gastric ulcer: Code(s): Z87.11 - Personal history of peptic ulcer disease Status: Acute (2) DVT prophylaxis: Code(s): Z29.9 - Encounter for prophylactic measures, unspecified Status: Acute (3) Generalized weakness: Code(s): R53.1 - Weakness Status: Acute (4) Altered mental status: Code(s): R41.82 - Altered mental status, unspecified Status: Acute (5) Leg cramps: Code(s): R25.2 - Cramp and spasm Status: Acute (6) Anemia: Code(s): D64.9 - Anemia, unspecified Status: Acute (7) Neurological deficit, transient: Code(s): R29.818 - Other symptoms and signs involving the nervous system Status: Acute (8) Brain TIA: Code(s): G45.9 - Transient cerebral ischemic attack, unspecified Status: Acute (9) Seizure: Code(s): R56.9 - Unspecified convulsions Status: Acute (10) Obesity: Qualifiers: Obesity type: due to excess calories Obesity classification: adult class 1 (BMI 30 - 34.9) Serious obesity comorbidity presence: without serious comorbidity Body mass index: BMI 33.0-33.9 Qualified Code(s): E66.09 - Other obesity due to excess calories; Z68.33 - Body mass index [BMI] 33.0-33.9, adult Code(s): E66.9 - Obesity, unspecified Status: Acute (11) Hyperlipidemia: Qualifiers: Hyperlipidemia type: mixed hyperlipidemia Qualified Code(s): E78.2 - Mixed hyperlipidemia Code(s): E78.5 - Hyperlipidemia, unspecified Status: Acute (12) Bilateral leg cramps: Code(s): R25.2 - Cramp and spasm Status: Acute (13) Cardiac pacemaker: Code(s): Z95.0 - Presence of cardiac pacemaker Status: Acute (14) Hypertension: Qualifiers: Hypertension type: primary hypertension Qualified Code(s): I10 - Essential (primary) hypertension Code(s): I10 - Essential (primary) hypertension Status: Acute (15) Gastric ulcer: Qualifiers: Gastric ulcer chronicity: unspecified ulcer chronicity Gastric ulcer complication status: without hemorrhage or perforation Qualified Code(s): K25.9 - Gastric ulcer, unspecified as acute or chronic, without hemorrhage or perforation Code(s): K25.9 - Gastric ulcer, unspecified
--- NOTE | 2021-12-31 13:22 | WPDNEURCNPN ---
Assessment and Plan Assessment and plan (1) Brain TIA: Code(s): G45.9 - Transient cerebral ischemic attack, unspecified Status: Acute (2) Seizure: Code(s): R56.9 - Unspecified convulsions Status: Acute Plan seizure versus TIA does have bilateral Babinski even when she was awake alert following verbal commands appropriately for that reason CT of the thoracic and cervical spine was obtained which was normal she is being transferred to the [facility] further evaluation and care Consult date: 12/31/21 HPI: Alma Akbar is a 76 year old female admitted to the hospital through the emergency room where she came for the complaints of confusion, facial pain, burning sensation in her eyes and feeling generally weak with no shortness of breath or chest pain and subsequently improving over 10 to 15 minutes. She made to the chair called her son but had 2 other episode over the next 2 hours but again resolved. Has been taking loratadine 20 mg daily Celebrex 1 capsule each 200 mg daily, totally allergic to meperidine and scopolamine, has the history of anemia, anxiety, bilateral lower extremity cramps, cardiac pacemaker, gastric ulcer with GI bleed, hypertension, and prediabetes, never a smoker current alcohol intake a only socially but no substance use initial examination by the ER physician unremarkable but subsequently the physician was called to the room she was noted to have slurred speech with facial droop was trying to follow the verbal commands but not able to perform the [id number] to finger to the food photographer was equal at the time we were called CTA was suggested, came back on the scanning room CTA was negative she was noted to have again active symptoms by the ER physician he call the [facility] with a long discussion with the stroke neurologist there who did not believe it was stroke and referred to General Neurology we were called at that particular her vital signs were stable except blood pressure 172/80 routine lab was normal EKG was normal admitted to the hospital with the possibility of TIA versus seizure EEG done on December 30, 2021 which did not reveal any paroxysmal activity and no diffuse slowing she continued to have some jerking received the lorazepam and 1 time Valium 10 mg IM though she was loaded with Keppra as well and subsequently with valproic acid once her EEG was noted Leslee normal the Depakote was discontinued he was continued on the Keppra was complaining of generalized weakness but my initial examination revealed her to have bilateral Babinski at that time CT scan of the cervical spine and thoracic spine were obtained which were negative she could not have the MRI of the brain because of the pacemaker for CT of the head was negative as well Review of Systems Review of Systems: All systems reviewed & are unremarkable except as noted in HPI and below PMFSH Past Medical History Medical History Anemia Anxiety Bilateral leg cramps Cardiac pacemaker Gastric ulcer GI bleed Hyperlipidemia Hypertension Prediabetes Surgical History Surgical History Status post cardiac pacemaker procedure Family History Family History Mother Patient's mother is Family history of Alzheimer's disease Family history of malignant neoplasm Sibling Brain tumor Social History Social History Smoking status: Never smoker Second hand tobacco smoke exposure: No Alcohol intake: current Alcohol use details: socially Substance use: never Spiritual care concerns: No Meds Home Medications and Allergies Home Medications Medication Instructions Recorded Confirmed Type loratadine 10 mg tablet (Allergy 20 mg PO DAILY PRN Allergy Symptoms 08/20/19 12/30/21 History Relief (loratadine)) homa
[2021-12-31] MEDS: ENOXAPARIN 40 MG/0.4 ML SYRINGE SUB-Q (14:10)
[2021-12-31 15:22] LABS: Glucose Point of Care 91 mg/dl (65-105)
[2021-12-31] MEDS: ALPRAZolam (*CRX) 0.5 MG TABLET PO (18:39)
[2021-12-31] MEDS: ACETAMINOPHEN 500 MG TABLET 1000 MG PO (20:05)
[2022-01-01] VITALS (16 sets, daily range): BP systolic 117–173; BP diastolic 50–81; PULSE 60–74; RESP 14–21; TEMP 36.3–37.1; O2SAT 95–100
[2022-01-01] MEDS: traMADol HCL (*CRX) 50 MG TABLET PO (01:37)
[2022-01-01] MEDS: ACETAMINOPHEN 500 MG TABLET 1000 MG PO (04:07)
[2022-01-01] MEDS: DEXTROSE 5%/0.45% SOD CHL 1,000 ML 75 ML IV CONT (06:18)
[2022-01-01] MEDS: SUMAtriptan SUCCINATE 6 MG/0.5 ML VIAL SUB-Q (06:21)
[2022-01-01] MEDS: ONDANSETRON INJ 4 MG/2 ML VIAL IV PUSH (06:21)
[2022-01-01 07:42] LABS: Basophils Percent Auto 0.6 % (0.2-1.2); Eosinophils Absolute Auto 0.1 K/mm3 (0-0.3); Eosinophils Percent Auto 3.9 % (0-4.4); Hematocrit 39.2 % (37.0-47.0); Hemoglobin 12.7 g/dL (12.0-15.0); Immature Granulocyte Absolute 0.01 K/mm3 (0.00-0.031); Immature Granulocyte Percent A 0.3 % (0-0.5); Lymphocytes Absolute Auto 1.06 K/mm3 (0.9-3.2); Lymphocytes Percent Auto 29.4 % (18.3-44.2); Mean Corpuscular HGB Conc 32.4 g/dl (32-36); Mean Corpuscular Volume 92.5 fl (80-100); Mean Platelet Volume 9.7 fl (7.4-10.4); Monocytes Absolute Auto 0.3 K/mm3 (0.1-0.6); Neutrophils Absolute Auto 2.1 K/mm3 (1.3-6.7); Neutrophils Percent Auto 57.8 % (45.5-73.1); Platelet Count Result 171 k/mm3 (150-375); Red Blood Count 4.24 M/mm3 (4.2-5.4); Red Cell Distribution Width 13.5 % (11.5-14.5); White Blood Count 3.6 K/mm3 (4.5-10.0)
[2022-01-01 07:53] LABS: Lactic Acid Reflex 0.7 mmol/L (0.7-2.0)
[2022-01-01 07:54] LABS: Alanine Aminotransferase 16 U/L (6-35); Albumin Level 3.4 g/dL (3.5-5.1); Alkaline Phosphatase 31 U/L (38-126); Anion Gap 3 mmol/L (8-16); Aspartate Amino Transferase 36 U/L (14-36); Bilirubin,Total 0.5 mg/dL (0.2-1.3); Blood Urea Nitrogen 9 mg/dL (7-17); Calcium 8.1 mg/dL (8.4-10.2); Carbon Dioxide 30 mmol/L (22-30); Chloride 98 mmol/L (98-107); Estimated CRCL calculation 97 ml/min; Estimated Glomerular Filt Rate > 60; Glucose 98 mg/dL (65-110); Magnesium 1.9 mg/dL (1.6-2.3); Phosphorus 3.9 mg/dL (2.5-4.5); Potassium 3.4 mmol/L (3.4-5.0); Sodium 131 mmol/L (137-145)
--- NOTE | 2022-01-01 08:04 | WPDINTPN ---
Progress Note: A&P Assessment and Plan (1) Seizure: Code(s): R56.9 - Unspecified convulsions Status: Acute Assessment and Plan: 12/31/2001: Patient was transferred the ICU for possible seizure activity. I was called to the intermediate/step-down unit and told that the patient was having seizure activity and was given Valium 10 mg IM and lorazepam. Patient had some sonorous respirations. But upon my arrival patient was getting EEG done, was awake, alert, oriented x3, nonfocal will to answer questions and hold conversation appropriately -appreciate Neurology evaluation and recommendation -continue Keppra, patient was also given 1 dose of valproic acid on 12/31/2021 -no more seizure activities 12/31: EEG - No significant abnormalities noted throughout the tracing which is compromised by the multiple muscle and movement artifacts (2) Altered mental status: Code(s): R41.82 - Altered mental status, unspecified Status: Acute Assessment and Plan: RESOLVED Patient presented to the hospital on 12/30/2021 with altered mental status, presyncope, possible TIA some slurring of speech and blurring of vision. -will maintain blood pressures between 140s to 160s for adequate perfusion of the brain -CT brain on 12/30: No acute intracranial process, age-related changing, chronic small-vessel ischemic disease -CTA head and neck on 12/30: No significant vascular abnormality of the intracranial or carotid arteries. No significant stenosis, occlusion, aneurysm or dissection. -repeat CT on 12/31: No acute intracranial process chronic small vessel ischemic disease (3) Generalized weakness: Code(s): R53.1 - Weakness Status: Acute Assessment and Plan: According the Neurology as patient had positive plantar reflexes, that is the reason we obtained a CT of cervical, thoracic and lumbar spine with results as below: - CT cervical spine did not show any fracture, mild cervical spondylosis -CT thoracic and lumbar spine showed severe thoracic and lumbar spondylosis, large sliding hiatal hernia -patient will require PT/OT (4) DVT prophylaxis: Code(s): Z29.9 - Encounter for prophylactic measures, unspecified Status: Acute Assessment and Plan: Enoxaparin (5) History of gastric ulcer: Code(s): Z87.11 - Personal history of peptic ulcer disease Status: Acute Assessment and Plan: Protonix Plan Patient has been accepted to [facility], awaiting a bed -discussed with hospitalist was agreed to except the patient and Dr. Rodriguez will consult for Neurology Additional Plan Discussed with son and updated with patient's condition, plan of care. They are aware that the patient be transferred for higher level of care Code status:Full code Critical care time spent: 34 minutes This dictation may have been done utilizing a voice recognition system. Attempts have been made to correct errors. However, there may be uncorrected grammatical, spelling, and recognition errors present. Due to a high probability of clinically significant, life threatening deterioration, the patient required my highest level of preparedness to intervene emergently and I personally spent this critical care time directly and personally managing the patient. This critical care time included obtaining a history; examining the patient; pulse oximetry; ordering and review of studies; arranging urgent treatment with development of a management plan; evaluation of patient's response to treatment; frequent reassessment; and discussions with other providers. It was exclusive of separately billable procedures and treating other patients and teaching time. Please see Assessment and Plan section and the rest of the note for further information on patient assessment and treatment Subjective Date/time seen: 01/01/22 08:04 Reason for consult: Seizures, weakness, TIA 01/01/2022: Patient s
[2022-01-01] MEDS: PANTOPRAZOLE SODIUM IV 40 MG VIAL IV PUSH (08:12)
[2022-01-01] MEDS: levETIRAcetam 1000MG/NACL100ML 1,000 MG/100 ML BAG 400 MG IVPB ×2 (08:12→19:58)
[2022-01-01] MEDS: ENOXAPARIN 40 MG/0.4 ML SYRINGE SUB-Q (08:13)
[2022-01-01] MEDS: POTASSIUM CHLORIDE 20 MEQ TABLET 40 MEQ PO (08:44)
[2022-01-01] MEDS: MAGNESIUM SULF 2 GM/WATER 50ML 2 GM/50 ML BAG IVPB (08:45)
--- NOTE | 2022-01-01 09:40 | PM.IMPN ---
Progress Note: A&P Assessment and Plan (1) History of gastric ulcer: Code(s): Z87.11 - Personal history of peptic ulcer disease Status: Acute (2) DVT prophylaxis: Code(s): Z29.9 - Encounter for prophylactic measures, unspecified Status: Acute (3) Generalized weakness: Code(s): R53.1 - Weakness Status: Acute (4) Altered mental status: Code(s): R41.82 - Altered mental status, unspecified Status: Acute (5) Leg cramps: Code(s): R25.2 - Cramp and spasm Status: Acute Assessment and Plan: -check stat magnesium level. (6) Anemia: Code(s): D64.9 - Anemia, unspecified Status: Acute Assessment and Plan: -monitor H&H with daily labs. -continue supplemental ferrous sulfate 325 mg. (7) Neurological deficit, transient: Code(s): R29.818 - Other symptoms and signs involving the nervous system Status: Acute Assessment and Plan: - Neuro checks Q4 hrs - EEG - Consult Neurology - Unable to do MRI secondary to bladder stimulator as well as pacemaker. -follow vital signs and labs. -seizure precautions -fall precautions -p.r.n. meds ordered if seizure activity is identified. -telemetry -interrogate pacemaker. -stat Mag -consider psychiatric consult based upon neurology findings. (8) Brain TIA: Code(s): G45.9 - Transient cerebral ischemic attack, unspecified Status: Acute (9) Seizure: Code(s): R56.9 - Unspecified convulsions Status: Acute (10) Obesity: Qualifiers: Obesity type: due to excess calories Obesity classification: adult class 1 (BMI 30 - 34.9) Serious obesity comorbidity presence: without serious comorbidity Body mass index: BMI 33.0-33.9 Qualified Code(s): E66.09 - Other obesity due to excess calories; Z68.33 - Body mass index [BMI] 33.0-33.9, adult Code(s): E66.9 - Obesity, unspecified Status: Acute (11) Hyperlipidemia: Qualifiers: Hyperlipidemia type: mixed hyperlipidemia Qualified Code(s): E78.2 - Mixed hyperlipidemia Code(s): E78.5 - Hyperlipidemia, unspecified Status: Acute (12) Bilateral leg cramps: Code(s): R25.2 - Cramp and spasm Status: Acute (13) Cardiac pacemaker: Code(s): Z95.0 - Presence of cardiac pacemaker Status: Acute (14) Hypertension: Qualifiers: Hypertension type: primary hypertension Qualified Code(s): I10 - Essential (primary) hypertension Code(s): I10 - Essential (primary) hypertension Status: Acute (15) Gastric ulcer: Qualifiers: Gastric ulcer chronicity: unspecified ulcer chronicity Gastric ulcer complication status: without hemorrhage or perforation Qualified Code(s): K25.9 - Gastric ulcer, unspecified as acute or chronic, without hemorrhage or perforation Code(s): K25.9 - Gastric ulcer, unspecified as acute or chronic, without hemorrhage or perforation Status: Acute Plan 12/30/21 - Neuro checks Q4 hrs - EEG - Consult Neurology - Unable to do MRI secondary to bladder stimulator as well as pacemaker. -follow vital signs and labs. -seizure precautions -fall precautions -p.r.n. meds ordered if seizure activity is identified. -telemetry -interrogate pacemaker. -stat Mag -consider psychiatric consult based upon neurology findings. -monitor H&H with daily labs. -continue supplemental ferrous sulfate 325 mg. -check stat magnesium level. 12/31/21 given Valium 10 mg IM and lorazepam and Valproic Acid causing her to become hypersomnolent and transferred to ICU no more seizure like activities since admission to ICU CT brain on 12/30:? No acute intracranial process, age-related changing, chronic small-vessel ischemic disease CTA head and neck on 12/30:?No significant vascular abnormality of the intracranial or carotid arteries. No significant stenosis, occlusion, aneurysm or dissection. repeat CT on 12/31:? No acute intracranial process
--- NOTE | 2022-01-01 16:58 | PM.TDS ---
Transfer Discharge Sum: Prov Provider Date of admission: 01/01/22 12:43 Primary care physician: Johnathan Jones DO Admitting clinician: Timi Spicer MD Consults: 12/31/21 Consult to Physician Routine Comment: Consulting Provider: Renzo Simmons Reason for consultation: icu transfer Has provider been notified: Yes Consult to Physician Routine Comment: Consulting Provider: Jack Sheffield Reason for consultation: possible seizures Has provider been notified: Yes [facility] the patient and Dr. Rodriguez will consult for Neurology DS: Admitting Diagnosis Discharge Date 01/01/22 Admitting Diagnosis (1) Neurological deficit, transient: ?Code(s): R29.818 - Other symptoms and signs involving the nervous system ?Status:?Acute ?Assessment and Plan: (2) Anemia: ?Code(s): D64.9 - Anemia, unspecified ?Status:?Acute ?Assessment and Plan: (3) Leg cramps: ?Code(s): R25.2 - Cramp and spasm ?Status:?Acute ?Assessment and Plan: DS: Discharge Diagnosis Discharge Diagnosis (1) History of gastric ulcer: Code(s): Z87.11 - Personal history of peptic ulcer disease Status: Acute (2) Generalized weakness: Code(s): R53.1 - Weakness Status: Acute (3) Altered mental status: Code(s): R41.82 - Altered mental status, unspecified Status: Acute (4) Leg cramps: Code(s): R25.2 - Cramp and spasm Status: Acute (5) Anemia: Code(s): D64.9 - Anemia, unspecified Status: Acute (6) Neurological deficit, transient: Code(s): R29.818 - Other symptoms and signs involving the nervous system Status: Acute (7) Brain TIA: Code(s): G45.9 - Transient cerebral ischemic attack, unspecified Status: Acute (8) Seizure: Code(s): R56.9 - Unspecified convulsions Status: Acute (9) Obesity: Qualifiers: Obesity type: due to excess calories Obesity classification: adult class 1 (BMI 30 - 34.9) Serious obesity comorbidity presence: without serious comorbidity Body mass index: BMI 33.0-33.9 Qualified Code(s): E66.09 - Other obesity due to excess calories; Z68.33 - Body mass index [BMI] 33.0-33.9, adult Code(s): E66.9 - Obesity, unspecified Status: Acute (10) Hyperlipidemia: Qualifiers: Hyperlipidemia type: mixed hyperlipidemia Qualified Code(s): E78.2 - Mixed hyperlipidemia Code(s): E78.5 - Hyperlipidemia, unspecified Status: Acute (11) Bilateral leg cramps: Code(s): R25.2 - Cramp and spasm Status: Acute (12) Cardiac pacemaker: Code(s): Z95.0 - Presence of cardiac pacemaker Status: Acute (13) Hypertension: Qualifiers: Hypertension type: primary hypertension Qualified Code(s): I10 - Essential (primary) hypertension Code(s): I10 - Essential (primary) hypertension Status: Acute (14) Gastric ulcer: Qualifiers: Gastric ulcer chronicity: unspecified ulcer chronicity Gastric ulcer complication status: without hemorrhage or perforation Qualified Code(s): K25.9 - Gastric ulcer, unspecified as acute or chronic, without hemorrhage or perforation Code(s): K25.9 - Gastric ulcer, unspecified as acute or chronic, without hemorrhage or perforation Status: Acute (15) Anemia: Qualifiers: Anemia type: iron deficiency Iron deficiency anemia type: chronic blood loss Qualified Code(s): D50.0 - Iron deficiency anemia secondary to blood loss (chronic) Code(s): D64.9 - Anemia, unspecified Status: Acute Transfer Discharge Sum: Med Medications Active and Home Medications: Home Medications loratadine 10 mg tablet (Allergy Relief (loratadine)) 20 mg PO DAILY PRN Allergy Symptoms 08/20/19 [History Confirmed 12/30/21] ferrous sulfate 325 mg (65 mg ir
== END 2022-01-01 20:25 | disposition short-term general hospital (02) | DRG 69 ==
LOC: ANHED 13:59 → ANHIMU 15:54 → ANHICU 12-31 08:27
PROVIDERS: Internal Medicine; Nurse Practitioner Adult Health; Admitting Provider Internal Medicine; Emergency Provider Emergency Medicine; PCP Internal Medicine; Visit Provider Hospitalist
DX: G45.9 Transient cerebral ischemic attack, unspecified (principal); Z20.822 Contact with and (suspected) exposure to COVID-19; R25.2 Cramp and spasm; F41.9 Anxiety disorder, unspecified; Z95.0 Presence of cardiac pacemaker; I10 Essential (primary) hypertension; R56.9 Unspecified convulsions; Z80.9 Family history of malignant neoplasm, unspecified; R41.82 Altered mental status, unspecified; Z82.0 Family history of epilepsy and other diseases of the nervous system; E66.09 Other obesity due to excess calories; Z68.33 Body mass index [BMI] 33.0-33.9, adult; K25.9 Gastric ulcer, unspecified as acute or chronic, without hemorrhage or perforation; D50.0 Iron deficiency anemia secondary to blood loss (chronic); R73.03 Prediabetes; E78.2 Mixed hyperlipidemia; Z79.899 Other long term (current) drug therapy
CPT/HCPCS: 36415; 70450; 70496; 70498; 72125; 72128; 72131; 80053; 81001; 82948; 83605; 83735; 84100; 84443; 84484; 85025; 93005; 95816; 96361; 96365; 96367; 96372; 96374; 96375; 96376; 99285; A9270; C9113; C9803; G0378; J1650; J1953; J2060; J2405; J3030; J3360; J3475; J7030; Q9967; U0003; U0005

== ENCOUNTER 2022-01-17 08:27 | Outpatient (CLI) | payer MEDICARE, SELFPAY ==
--- NOTE | 2022-02-07 11:58 | WPDSLEEPSTUD ---
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 Her sleep history shows that a week or so prior to the sleep test she felt unusual 1 morning. She called for help and was noted to have a seizure lasting 4 minute. Her son took her to the hospital. The longus seizure was 2 hours. She was transferred to [facility] and had a short seizure there. Problems with her seizures have been going on for over 2 years. She has been waking up during the night. She occasionally awakens from sleep feeling short of breath and awakens at night with heartburn, belching or coughing. She rarely snores. She occasionally has trouble sleeping with a cold. She frequently wakes up gasping for breath at night. She occasionally has breathing problems at night observed by others. She frequently sweats excessively at night. She does not notice her heart pounding or beating irregularly at night. She does not fall asleep during the day and does not fall asleep involuntarily or while driving. She rarely has loss of muscle tone with strong emotion. she does not have daytime difficulties due to excessive sleepiness. She rarely feels paralyzed on waking or falling asleep. She occasionally has vivid dreamlike scenes upon awakening or falling asleep. She does not feel afraid to go to sleep. She does not have nightmares. She occasionally remembers her dreams. She occasionally has racing thoughts. She does not feel sad or depressed. She occasionally feels anxious. She occasionally has muscular tension. She does not notice parts of her body jerking. She denies kicking at night. She frequently has crawling and aching feelings in her legs and leg pain at night. She does not have morning jaw pain. She does not grind her teeth during night. She occasionally is bothered by pain in her knees during the day. She occasionally is awakened by pain at the night. She does not wake up feeling stiff the morning. She occasionally wakes up with sore achy muscles. She does not wake up with pain in the neck and spine. She has memory problems and fatigue. She reports a 12 lb weight loss in the last year. Her normal bedtime is between 9:00 p.m. and 10:00 p.m. taking 10-15 minutes to fall asleep. She wakes during the night 2-3 times to go to the bathroom. She is able to return to sleep shortly after that. Her wake-up time is 7:00 a.m.. On the weekends, she may go to bed between 9:00 p.m. and midnight, and she wakes around 8:00 a.m.. She does not usually take naps. If she does take a short nap it is generally refreshing. She feels better in the morning compared to other times of day. She frequently wakes feeling refreshed. Habits: Never smoked tobacco. Caffeine 3-4 cups per day. No alcohol or recreational drugs. [facility] Past Medical History Medical History Anemia Anxiety Bilateral leg cramps Cardiac pacemaker Gastric ulcer GI bleed Hyperlipidemia Hypertension Prediabetes Surgical History Surgical History Status post cardiac pacemaker procedure Family History Family History Mother Patient's mother is Family history of Alzheimer's disease Family history of malignant neoplasm Sibling Brain tumor Social History Social History Smoking status: Never smoker Second hand tobacco smoke exposure: No Alcohol intake: current Alcohol use details: socially Sub
[2022-02-09 11:31] VITALS: BMI 34.7
== END 2022-01-18 06:03 | disposition home or self-care (01) ==
PROVIDERS: PCP Internal Medicine; Visit Provider Family Medicine
DX: G47.10 Hypersomnia, unspecified (principal); G25.81 Restless legs syndrome; G47.33 Obstructive sleep apnea (adult) (pediatric)
CPT/HCPCS: 95811

== ENCOUNTER 2022-05-12 10:30 | Outpatient (RCR) | payer MEDICARE, SELFPAY ==
--- NOTE | 2022-05-05 15:21 | OTOPEVAL1 ---
Assessment and note entered by Glenn Bautista, KRISTY/Lj, CHT Evaluation Information Assessment Status Evaluation Diagnosis Left distal radius fracture s/p ORIF Onset ORIF 03/18/22 Subjective Information Patient reports she has been favoring her right hand for ADLs. She states that today she used her left hand to help shampoo her hair today and she states it went well and she had not pain with it. She is wearing a removable wrist cock up brace that she takes off when just resting. Reported Pain Level Pain Score 0: Self Report Assessment OT Clinical Summary Alma is referred to outpatient OT with dx of distal radius fx s/p ORIF about 6 weeks ago. Today she was instructed in active and passive ROM HEP and demonstrates excellent understanding. Orders state no strengthening yet. At this time we will plan to see her again in a week to assess ROM and HEP compliance. If progressing well, we will hold therapy until cleared for strengthening. Plan of Care Interventions Therapeutic Exercise,Manual Therapy,Therapeutic Activities,Hot Pack/Cold Pack,Paraffin OT Services Indicated Yes Treatment Frequency and 0-1x/week for 6 weeks Duration These treatments will address the objective and functional deficits as defined above. The patient will be advanced safely and appropriately in order for the patient to progress towards his/her prior level of function. Additional exercises will be introduced and as well as a comprehensive home exercise program upon discharge, if needed, ?to ensure carryover of functional gains achieved in the clinic. This treatment plan has been reviewed and agreement upon by the patient.
--- NOTE | 2022-06-29 10:51 | OTOPDC ---
Assessment and note entered by Babita Chiu OTR/Lj Evaluation Information Assessment Status Discharge - Pt Not Presen Assessment OT Clinical Summary Patient was last seen for a OT treatment on 2021. Patient has not attended visits since last treatment. Patient is to be discharged from skilled OT at this time. If patient wishes to return will need a new order from MD. Plan of Care OT Services Indicated No
== END 2022-06-29 16:11 | disposition home or self-care (01) ==
LOC: ANHOT 10:30
PROVIDERS: PCP Internal Medicine
DX: S52.572D Other intraarticular fracture of lower end of left radius, subsequent encounter for closed fracture with routine healing (principal)
CPT/HCPCS: 97110; 97165

== ENCOUNTER 2023-01-05 08:40 | Outpatient (CLI) | payer MEDICARE, SELFPAY ==
[2023-01-05 12:36] LABS: Hematocrit 40.8 % (37.0-47.0); Hemoglobin 12.9 g/dL (12.0-15.0); Mean Corpuscular HGB Conc 31.6 g/dl (32-36); Mean Corpuscular Hemoglobin 28.9 pg (26-34); Mean Corpuscular Volume 91.3 fl (80-100); Mean Platelet Volume 10.7 fl (7.4-10.4); Platelet Count Result 199 k/mm3 (150-375); Red Blood Count 4.47 M/mm3 (4.2-5.4); Red Cell Distribution Width 15.6 % (11.5-14.5); White Blood Count 4.5 K/mm3 (4.5-10.0)
[2023-01-05 12:49] LABS: Alanine Aminotransferase 22 U/L (6-35); Albumin Level 4.3 g/dL (3.5-5.1); Alkaline Phosphatase 33 U/L (38-126); Anion Gap 5 mmol/L (8-16); Aspartate Amino Transferase 38 U/L (14-36); Bilirubin,Total 0.7 mg/dL (0.2-1.3); Blood Urea Nitrogen 26 mg/dL (7-17); Calcium 8.9 mg/dL (8.4-10.2); Carbon Dioxide 32 mmol/L (22-30); Chloride 98 mmol/L (98-107); Cholesterol 197 mg/dL (0-200); Estimated Glomerular Filt Rate > 60; Glucose 78 mg/dL (65-110); HDL Direct 57 mg/dL; Potassium 5.4 mmol/L (3.4-5.0); Sodium 135 mmol/L (137-145); Triglycerides 53 mg/dL (<150)
[2023-01-05 12:59] LABS: LDL Cholesterol Direct 119 mg/dL
[2023-01-05 13:07] LABS: Hemoglobin A1C 5.4 % (<5.7)
[2023-01-05 13:53] LABS: Folic Acid 8.8 ng/mL (2.76->20)
== END 2023-01-05 08:41 | disposition home or self-care (01) ==
LOC: ANHGOSHLAB 08:41
PROVIDERS: PCP Internal Medicine; Visit Provider Internal Medicine
DX: E78.5 Hyperlipidemia, unspecified (principal); R73.03 Prediabetes; R41.3 Other amnesia; I10 Essential (primary) hypertension
CPT/HCPCS: 36415; 80053; 80061; 82607; 82746; 83036; 85027

== ENCOUNTER 2023-06-15 09:09 | Outpatient (CLI) | payer MEDICARE, SELFPAY ==
--- NOTE | ~2023-06-15 | MM_ITS ---
EXAMINATION: MM screening [facility] BI w red HISTORY: Screening mammogram TECHNIQUE: Craniocaudal and mediolateral oblique 3-D tomosynthesis images were obtained and synthetic 2-D images were generated. CAD analysis was submitted and interpreted. COMPARISON: 04/20/2020, 07/18/2018, 11/29/2016 BREAST PARENCHYMAL COMPOSITION: There are scattered areas of fibroglandular density. FINDINGS: Scattered benign-appearing calcifications are present. No suspicious mass, calcification, o r architectural distortion are identified in either breast to suggest malignancy. There has been no s uspicious interval change. IMPRESSION: 1. No mammographic evidence of malignancy. 2. Recommend routine screening mammography in one year. BI-RADS Category 2: Benign finding(s). Reviewed, dictated and finalized at location A. ER DEVELOPMENT COUNSELOR
== END 2023-06-15 09:10 | disposition home or self-care (01) ==
PROVIDERS: PCP Internal Medicine; Visit Provider Internal Medicine
DX: Z12.31 Encounter for screening mammogram for malignant neoplasm of breast (principal)
CPT/HCPCS: 77063; 77067

== ENCOUNTER 2023-09-21 08:16 | Emergency (ER) | payer MEDICARE, SELFPAY ==
--- NOTE | 2023-09-21 08:44 | ED.URI ---
HPI - URI/Sore Throat General Stated Complaint: Cough Time Seen by Provider: 09/21/23 08:49 Source: patient, RN notes reviewed and old records reviewed Mode of arrival: ambulatory Limitations: no limitations History of Present Illness HPI Narrative: 78 yo female [facility] for a cough that started about 4 days ago. Reports subjective fever a couple of days ago. Reports intermittent body aches and fatigue. HX if cardiac issues. OTC medications tried. Reports neg home covid yesterday. Denies CP, SOB. Onset (ago): day(s) (4) Treatments prior to arrival: cold medicine Related Data Home Medications Medication Instructions Recorded Confirmed loratadine 10 mg tablet (Allergy 20 mg PO DAILY PRN Allergy Symptoms 08/20/19 07/20/23 Relief (loratadine)) celecoxib 200 mg capsule 200 mg PO BID 12/30/21 07/20/23 Brain Booster .Route 01/05/23 07/20/23 Fruit and veggie supplement .Route 01/05/23 07/20/23 melatonin 10 mg capsule 5 mg PO QHS 01/05/23 07/20/23 Allergies Allergy/AdvReac Type Severity Reaction Status Date / Time scopolamine Allergy Severe RESP Verified 07/20/23 08:05 DISTRESS DUE TO THROAT CLOSING meperidine [From Demerol] Allergy Intermediate Anaphylaxis Verified 07/20/23 08:05 Review of Systems Review of Systems: All systems reviewed & are unremarkable except as noted in HPI and below Constitutional: Constitutional: Reports no additional constitutional complaints Eyes: Eyes: Reports no additional eye complaints ENT: Reports system reviewed and no additional complaints, except as documented Cardiovascular: Cardiovascular: Reports no additional cardiovascular complaints, Denies chest pain and Denies dyspnea Respiratory: Respiratory: Reports as per HPI, Denies chest congestion, Reports cough and Denies dyspnea Gastrointestinal: Gastrointestinal: Reports no additional gastrointestinal complaints, Denies abdominal pain, Denies nausea and Denies vomiting Musculoskeletal: Musculoskeletal: Reports no additional musculoskeletal complaints Integumentary/Breasts: Skin/Breast: Reports system reviewed and no additional complaints, except as docu Neurologic: Reports system reviewed and no additional complaints, except as documented Psychiatric: Psychiatric: Reports no additional psychiatric complaints Allergic/Immunologic: Allergic/Immunologic: Reports no additional allergic/immunologic complaints PMFSH Past Medical History Medical History Anemia Anxiety Bilateral leg cramps Cardiac pacemaker Daytime hypersomnia DVT prophylaxis Gastric ulcer GI bleed Hyperlipidemia Hypertension Prediabetes Surgical History Surgical History H/O wrist surgery History of foot surgery Status post cardiac pacemaker procedure Status post open reduction with internal fixation of fracture Family History Family History Mother Patient's mother is Family history of Alzheimer's disease Family history of malignant neoplasm Sibling Brain tumor Social History Social History Smoking status: Never smoker Second hand tobacco smoke exposure: No Alcohol intake: current Alcohol use details: socially Substance use: never Lack of Transportation: No Lack of Food: Never True Current Housing: I Have Housing Concerned About Future Housing: No Difficulty Paying Gas/Electric Bills: No Difficulty Paying for Meds: No Currently Unemployed: No Education: Bachelor's Degree Difficulty w/ Childcare or Family Care: No Spiritual care concerns: No Comments At the time of my signature, I reviewed and agree with the nursing past medical, surgical, social, and family history. There is no relevant family history pertinent to the patient complaint.
== END 2023-09-21 09:11 | disposition home or self-care (01) ==
PROVIDERS: Emergency Provider Nurse Practitioner
DX: J10.1 Influenza due to other identified influenza virus with other respiratory manifestations (principal); Z20.822 Contact with and (suspected) exposure to COVID-19; I10 Essential (primary) hypertension; E78.5 Hyperlipidemia, unspecified; R73.03 Prediabetes; Z95.0 Presence of cardiac pacemaker
CPT/HCPCS: 87426; 99213; G0463

== ENCOUNTER 2024-01-18 08:59 | Outpatient (CLI) | payer MEDICARE, SELFPAY ==
[2024-01-18 14:49] LABS: Basophils Percent Auto 0.8 % (0.2-1.2); Eosinophils Absolute Auto 0.1 K/mm3 (0-0.3); Eosinophils Percent Auto 2.5 % (0-4.4); Hemoglobin 12.4 g/dL (12.0-15.0); Immature Granulocyte Absolute 0.01 K/mm3 (0.00-0.031); Immature Granulocyte Percent A 0.3 % (0-0.5); Lymphocytes Absolute Auto 0.93 K/mm3 (0.9-3.2); Lymphocytes Percent Auto 23.3 % (18.3-44.2); Mean Corpuscular HGB Conc 31.8 g/dl (32-36); Mean Corpuscular Hemoglobin 30.4 pg (26-34); Mean Corpuscular Volume 95.6 fl (80-100); Mean Platelet Volume 10.4 fl (7.4-10.4); Monocytes Absolute Auto 0.4 K/mm3 (0.1-0.6); Neutrophils Absolute Auto 2.6 K/mm3 (1.3-6.7); Neutrophils Percent Auto 64.1 % (45.5-73.1); Platelet Count Result 198 k/mm3 (150-375); Red Blood Count 4.08 M/mm3 (4.2-5.4); Red Cell Distribution Width 13.9 % (11.5-14.5)
[2024-01-18 15:12] LABS: Alanine Aminotransferase 13 U/L (6-35); Alkaline Phosphatase 38 U/L (38-126); Anion Gap 5 mmol/L (4-12); Aspartate Amino Transferase 30 U/L (14-36); Bilirubin,Total 0.5 mg/dL (0.2-1.3); Blood Urea Nitrogen 29 mg/dL (7-17); Calcium 8.8 mg/dL (8.4-10.2); Carbon Dioxide 29 mmol/L (22-30); Chloride 101 mmol/L (98-107); Cholesterol 196 mg/dL (0-200); Estimated Glomerular Filt Rate > 60; Glucose 84 mg/dL (65-110); HDL Direct 52 mg/dL; Potassium 4.4 mmol/L (3.4-5.0); Sodium 135 mmol/L (137-145); Triglycerides 78 mg/dL (<150)
[2024-01-18 15:26] LABS: LDL Cholesterol Direct 118 mg/dL
== END 2024-01-18 09:00 | disposition home or self-care (01) ==
PROVIDERS: PCP Internal Medicine; Visit Provider Internal Medicine
DX: E78.2 Mixed hyperlipidemia (principal); D64.9 Anemia, unspecified; E87.5 Hyperkalemia; I10 Essential (primary) hypertension; R73.03 Prediabetes
CPT/HCPCS: 36415; 80053; 80061; 82728; 85025

== ENCOUNTER 2024-01-23 14:54 | Outpatient (NON) | payer MEDICARE, SELFPAY ==
[2024-01-23 19:43] LABS: IFOB Positive Control Positive; Immunochemical Fecal Occult Bl Negative (N)
== END 2024-01-23 14:55 | disposition home or self-care (01) ==
LOC: ANHGOSHLAB 14:56
PROVIDERS: PCP Internal Medicine; Visit Provider Internal Medicine
DX: R19.5 Other fecal abnormalities (principal)
CPT/HCPCS: 82274

== ENCOUNTER 2024-03-21 11:17 | Outpatient (CLI) | payer MEDICARE, SELFPAY ==
--- NOTE | ~2024-03-21 | US_ITS ---
EXAMINATION: US venous doppler LE RT DATE: 03/21/2024 12:00 INDICATION: Right lower limb swelling. Other specified soft tissue disorders. TECHNIQUE: Grayscale ultrasound images without and with compression and Doppler ultrasound images of the right lower extremity veins were obtained. COMPARISON: None. FINDINGS: The visualized portions of right common femoral vein, profunda (deep) femoral vein, femoral vein, pop liteal vein, peroneal veins, posterior tibial veins, and greater saphenous vein outflow are patent. IMPRESSION: 1. No deep venous thrombosis. Reviewed, dictated and finalized at location A.
== END 2024-03-21 11:18 | disposition home or self-care (01) ==
LOC: ANHIMG 11:21
PROVIDERS: PCP Internal Medicine; Visit Provider Nurse Practitioner
DX: M79.89 Other specified soft tissue disorders (principal)
CPT/HCPCS: 93971

== ENCOUNTER 2024-08-01 10:00 | Outpatient (RCR) | payer MEDICARE, SELFPAY ==
--- NOTE | 2024-06-20 15:26 | OPREHPOC ---
Outpatient Therapy Plan of Care This is a Multidisciplinary Plan of Care that may contain components documented by all disciplines (PT, OT, and ST.) PT Problem 1 PT Problem #1 Knowledge Deficit PT Goal 1 Goal / Goal Update *indep with HEP Target Visit 8 PT Problem 2 PT Problem #2 Pain PT Goal 1 Goal / Goal Update 1* pt report pain rating at worst of 2/10 with increased activity level 2* pt report walking tolerance of 30 minutes Target Visit 8 PT Problem 3 PT Problem #3 Impaired Range of Motion PT Goal 1 Goal / Goal Update 1* L ankle DF 8', to improve walking and mobility skills Target Visit 8 PT Problem 4 PT Problem #4 Impaired Strength PT Goal 1 Goal / Goal Update increase strength of L ankle to improve mobility and balance skills: 1* bilateral PF in standing x 15 reps without loss of balance 2* 5 reps sit/stand time of 22 seconds with 1 UE use 3* 2 minute walking test distance of 425' Target Visit 8
--- NOTE | 2024-06-20 15:26 | PTOPEVAL1 ---
Assessment and note entered by Shara Campbell, PT Evaluation Information Assessment Status Evaluation ICD-10 Condition Codes (PT) M25.572 Other ICD-10 Condition Codes ( S93.40D sprain L ankle PT) Onset Apr 2024 Subjective Information when out of town at grand child's home and helping them, twisted ankle; had walking boot and could barely stand on R foot & used a cane; removed the boot and stopped using the cane a few weeks ago. xray: no fracture Activity: active; indep with home and self care tasks; Reported Pain Level Pain Score Self Report Additional Pain Score Comments pain range in the past few days 1-10/07; proximal ankle- entire aspect; ankle is red and swollen increase pain: walking and standing 20-25 minutes decrease pain: sit/rest, elevate leg in recliner; do not take any meds or use ice; sleeping through the night; Assessment PT Clinical Summary Alma has the diagnosis of L ankle sprain. She reports ankle has improved --less pain, no longer using cane or walking boot. LE functional scale rating of 45% limitation in activity level. Walking is limited to 20-25 min at time, then have to sit down. History includes: bilateral knee pain and gets knee injections in her R knee, pacemaker and bladder stimulator. With the evaluation: she has slight decrease in L ankle DF and PF ranges, with PF most painful motion; redness over ankle with edema at malloli; 5 reps sit/stand time of 32 seconds with use of 1 UE and 2 minute walking test distance of 350'. Skilled PT services are indicated for modalities to decrease pain and edema over ankle; therapeutic exercises to increase ROM and strength, gait and mobility skills, with education for HEP. Plan of Care Interventions Gait Training,Hot Pack/Cold Pack,Intermittent Compression,Manual Therapy,Neuro Re-education, Patient Education,Therapeutic Activities, Therapeutic Exercise,Other Other Interventions fluidotherapy, taping PT Services Indicated Yes Treatment Frequency and 1-2x/wk for 8 visits Duration These treatments will address the objective and functional deficits as defined above. The patient will be advanced safely and appropriately in order for the patient to progress towards his/her prior level of function. Additional exercises will be introduced and as well as a comprehensive home exercise program upon discharge, if needed, ?to ensure carryover of functional gains achieved in the clinic. This treatment plan has been reviewed and agreement upon by the patient.
--- NOTE | 2024-08-01 10:46 | PTOPDC ---
Assessment and note entered by Shara Campbell, PT Assessment Status Discharge ICD-10 Condition Codes (PT) Pain in left ankle and joints of left foot M25.572 Other ICD-10 Condition Codes ( S93.40D sprain L ankle PT) Onset Apr 2024 Subjective Information pleased with how well things are going; doing everything she usually does but have family carry things into the basement; doing the exercises at home; can be up and walking/doing things at home as long as she wants to--not limited due to ankle pain; Reported Pain Level Pain Score 0: Self Report Assessment PT Clinical Summary Alma has received 8 PT sessions. Compared to the initial evaluation: improved in all areas: no pain in L foot/ankle, have returned to her normal activity level, self assessment LE functional score rating from 45 to 26% limitation in activity level; increase L ankle ROM and strength; 2 minute walking test distance from 350 to 480'; improved gait pattern; education for HEP completed. The goals were achieved. Discharge PT services. She is to continue with her HEP. Plan of Care PT Services Indicated No
== END 2024-08-01 12:44 | disposition home or self-care (01) ==
LOC: ANHPT 10:00
PROVIDERS: PCP Internal Medicine; Visit Provider Nurse Practitioner
DX: S93.402D Sprain of unspecified ligament of left ankle, subsequent encounter (principal); M25.572 Pain in left ankle and joints of left foot
CPT/HCPCS: 97110; 97116; 97161; 97530

== ENCOUNTER 2024-12-09 11:00 | Outpatient (CLI) | payer MEDICARE, SELFPAY ==
--- OUTSIDE RECORDS SUMMARY | 2024-12-09 11:23 | XMS_ITS | Encounter Summary ---
Author Organization [facility] Address [address] [place] [address] Phone Care Team Providers Care Air Route Controller Name Role Phone Johnathan Jones DO Primary Care Provider [phone] Talib Glass MD Unavailable [phone] Encounter Details Date Type Department Care Team (Late st Contact Info) Description 03/19/2017 Orders Only [facility] Provider, MD Katelin [address] [place] [id number] Social History Tobacco Use Types Packs/Day Years Used Date Smoking Tobacco: Never Assessed Comments Unknown Sex and Gender Information Value Date Recorded Sex Assigned at Not on file Legal 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 Historical Provider [facility] Final Result * CARDIOLOGY REPORT (03/19/2017) Anatomical Region Laterality Modality Other Narrative 03/19/2017 Ordered by an unspecified provider. us Historical Provider [facility] Final Result documented in this encounter Visit Diagnoses Not on filedocumented in this encounter Care Teams Air Route Controller Relationship Specialty Start Date End Date Johnathan Jones DO PCP - General 10/05/16 Talib Glass MD [address] [facility] [address] [place] [address] Consulting Physician Neurology 01/03/22 documented as of this encounter
--- OUTSIDE RECORDS SUMMARY | 2024-12-09 11:23 | XMS_ITS | Encounter Summary ---
Author Organization [facility] Address [address] [place] [address] Phone Care Team Providers Care Cma Or Lpn Name Role Phone Johnathan Jones DO Primary Care Provider [phone] Talib Glass MD Unavailable [phone] Encounter Details Date Type Department Care Team (Late st Contact Info) Description 02/07/2016 Orders Only [facility] Provider, MD Katelin [address] [place] [address] Social History Tobacco Use Types Packs/Day Years Used Date Smoking Tobacco: Never Assessed Comments Unknown Sex and Gender Information Value Date Recorded Sex Assigned at Not on file 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 Historical Provider [facility] Final Result * CARDIOLOGY REPORT (02/07/2016) Anatomical Region Laterality Modality Other Narrative 02/07/2016 Ordered by an unspecified provider. us Historical Provider [facility] Final Result documented in this encounter Visit Diagnoses Not on filedocumented in this encounter Care Teams Cma Or Lpn Relationship Specialty Start Date End Date Johnathan Jones DO PCP - General 10/05/16 Talib Glass MD [address] [facility] [address] [place] [address] Consulting Physician Neurology 01/03/22 documented as of this encounter
--- OUTSIDE RECORDS SUMMARY | 2024-12-09 11:23 | XMS_ITS | Encounter Summary ---
Author Organization [facility] Address [address] [place] [address] Phone Care Team Providers Care Compliance Manager Name Role Phone Johnathan Jones DO Primary Care Provider [phone] Talib Glass MD Unavailable Encounter Details Date Type Department Care Team (Late st Contact Info) Description 06/07/2015 Orders Only [facility] Provider, MD Katelin [address] [place] [address] Social History Tobacco Use Types Packs/Day Years Used Date Smoking Tobacco: Never Assessed Comments Unknown Sex and Gender Information Value Date Recorded Sex Assigned at Not on file Legal Sex Female 8:52 PM MESSENGER COPY Gender Identity Not on file Sexual Orientation Not on file documented as of this encounter Plan of Treatment Not on file documented as of this encounter Procedures Procedure Name Priority Date/Time Associated Diagnosis Comments CARDIOLOGY REPORT 06/07/2015 CARDIOLOGY REPORT 06/07/2015 documented in this encounter Results * CARDIOLOGY REPORT (06/07/2015) Anatomical Region Laterality Modality Other Narrative 06/07/2015 Ordered by an unspecified provider. Historical Provider [facility] Final Result * CARDIOLOGY REPORT (06/07/2015) Anatomical Region Laterality Modality Other Narrative 06/07/2015 Ordered by an unspecified provider. us Historical Provider [facility] Final Result documented in this encounter Visit Diagnoses Not on filedocumented in this encounter Care Teams Compliance Manager Relationship Specialty Start Date End Date Johnathan Jones DO PCP - General 10/05/16 Talib Glass MD [address] [facility] [address] [place] [address] Consulting Physician Neurology 01/03/22 documented as of this encounter
--- OUTSIDE RECORDS SUMMARY | 2024-12-09 11:23 | XMS_ITS | Encounter Summary ---
Author Organization [facility] Address [address] [place] [address] Phone Care Team Providers Care Cotton Breeder Name Role Phone Johnathan Jones DO Primary Care Provider [phone] Talib Glass MD Unavailable [phone] Encounter Details Date Type Department Care Team (Late st Contact Info) Description 02/08/2015 Orders Only [facility]INCON[facility] Provider, MD Katelin [address] [place] [address] Social History Tobacco Use Types Packs/Day Years Used Date Smoking Tobacco: Never Assessed Comments Unknown Sex and Gender Information Value Date Recorded Sex Assigned at Not on file Legal Sex Female 8:52 PM STUDIO GRIP Gender Identity Not on file Sexual Orientation Not on file documented as of this encounter Plan of Treatment Not on file documented as of this encounter Procedures Procedure Name Priority Date/Time Associated Diagnosis Comments CARDIOLOGY REPORT 02/08/2015 CARDIOLOGY REPORT 02/08/2015 documented in this encounter Results * CARDIOLOGY REPORT (02/08/2015) Anatomical Region Laterality Modality Other Narrative 02/08/2015 Ordered by an unspecified provider. Historical Provider [facility]AE[facility] Final Result * CARDIOLOGY REPORT (02/08/2015) Anatomical Region Laterality Modality Other Narrative 02/08/2015 Ordered by an unspecified provider. us Historical Provider [facility]AE[facility] Final Result documented in this encounter Visit Diagnoses Not on filedocumented in this encounter Care Teams Cotton Breeder Relationship Specialty Start Date End Date Johnathan Jones DO PCP - General 10/05/16 Talib Glass MD [address] [facility] [address] [place] [address] Consulting Physician Neurology 01/03/22 documented as of this encounter
--- OUTSIDE RECORDS SUMMARY | 2024-12-09 11:23 | XMS_ITS | Clinical Summary ---
Author Organization [facility] Address [address] [place] [address] Care Team Providers Care Pattern Painter Name Role Phone Johnathan Jones DO Primary Care Provider [phone] Talib Glass MD Unavailable [phone] Allergies Active Allergy Reactions Criticality Noted Date Comments Meperidine Swelling High Reaction: THROAT SWELLING Scopolamine Anaphylaxis High Reaction: THROAT SWELLING Medications losartan (COZAAR) 50 mg tabletIndicati ons:hypertensi on Take 1 tablet (50 mg total) by mouth every morning 0 018 Active loratadine (CLARITIN ORAL)Indicatio ns:seasonal allergies Take 10 mg by mouth daily as needed Active ferrous sulfate 325 mg (65 mg of elemental iron) tabletIndicati ons:Iron Deficiency Anemia Take 1 tablet (325 mg total) by mouth 2 (two) times a day Active melatonin tabletIndicati ons:sleep Take 10 mg by mouth nightly Active celecoxib (CeleBREX) 200 mg capsuleIndicat ions:pain Take 1 capsule (200 mg total) by mouth nightly 021 Active omeprazole (PriLOSEC) 40 mg capsuleIndicat ions:Stress Ulcer Prophylaxis Take 1 capsule (40 mg total) by mouth every morning 021 Active herbal drugs tabletIndicati ons:memory Take 1 tablet by mouth every morning Brain Booster Active LORazepam (ATIVAN) 0.5 mg tablet Take 1 tablet (0.5 mg total) by mouth daily as needed for anxiety 10 tablet 022 Active escitalopram (LEXAPRO) 20 mg tablet Take 1 tablet (20 mg total) by mouth daily 30 tablet 1 Active Wegovy 0.5 mg/0.5 mL auto-injector 0.5 MG (0.5 ML) SUBCUTANEOUSLY WEEKLY Active donepeziL (ARICEPT) 10 mg tablet Take 1 tablet (10 mg total) by mouth every morning Take 1 tablet by mouth daily in the AM. 30 tablet 6 025 2024 Active donepeziL (ARICEPT) 5 mg tablet Take 1 tablet (5 mg total) by mouth every morning Take 1 tablet by mouth daily in the AM. 30 tablet 025 2024 Discontinued Active Problems Problem Noted Date Diagnosed Date Fall on same level from slipping, tripping or st umbling 12/19/2023 Dysnomia 12/19/2023 Memory loss 12/19/2023 Mild cognitive impairment 12/19/2023 Assessment & Plan (10/28/2024 2:15 PM CDT): Overall, stable cognitive testing, although, her Logical Memory score decreased from 11 to 6 today. We discussed acetylcholinesterase inhibitors and she was interested undergoing a trial of donepezil/Aricept 5 mg daily. We discussed relevant side effects. Would like to increase this to 10 mg daily after one month if well tolerated. Suggested CS install Better[employer] on the patient's/his phone. Also asked him to ride with the patient at least once a month to see how her driving habits are. If there was decline, she would benefit from a driving evaluation. Follow-up in 6 months or sooner if need be. Left wrist pain 04/06/2022 Closed fracture of left distal radius 04/06/2022 Essential hypertension 01/02/2022 Chronic anxiety 01/02/2022 Convulsions 01/01/2022 Assessment & Plan (07/11/2022 9:09 AM CLAM GRADER): No further seizures. Workup has been negative. Follow up p.r.n.. Complete heart block (CMS/HCC) 09/26/2019 Lower extremity edema 09/26/2019 Anemia 2019 Assessment & Plan (2019 2:25 PM CLAM GRADER): Hb 8 last week and now on iron and feeling better. Review of our records las Hb 05/17 was 10.6. Our records show anemia back to 2017. EGD and HH with pranav's ulcers, colon small polyp,tics and roids. She has no sx/signs to suggest source of bleeding so will proceed with EGD/Colonoscopy/ and capsule. Recurrent UTI 09/02/2019 Vaginal atrophy 09/02/2019 Pelvic floor dysfunction in female 09/02/2019 Urinary retention 10/30/2018 Overview (10/30/2018): Added automatically from request for surgery [id number] Retention of urine 10/30/2018 Overview (10/30/2018): Added automatically from request for surgery [id number] Rectocele 05/01/2018 Dyspnea on exertion 09/14/2016 Cardiac pacemaker in situ 09/11/2012 Overview (12/19/2023): Medtronic Revo Complete heart block 09/03/2012 Encounters Date Type Department Care Team Description 11/01/[address] [facility] Diagnostic [place] [id number] [facility] First Floor [address] [place] [address] Marya Underwood CNS 11/01/2024 Telephone [facility] Memory Diagnostic [place] [id number] [facility] First Floor [address] [place] [address] Marya Underwood, EARNEST 10/28/2024 1:45 PM CDT Office Visit [facility] Diagnostic [place] [address] [facility] 6th [address] [place] [address] Forrest Perea NP Mild cognitive impairment (Primary Dx) 10/02/2024 10:45 AM CLAM GRADER Office Visit [facility] Cardiology [address] [place] [address] Medicine 8th [place] [address] [place] [address] Amandeep Jorgensen MD PhD CHB (complete heart block) (HCC) (Primary Dx) 10/02/2024 10:15 AM CLAM GRADER Ancillary Procedure [facility] Cardiology [address] [facility] 8th [place] [address] [place] [address] CHB (complete heart block) (HCC); Fitting or adjustment of cardiac pacemaker 09/24/2024 Orders Only [facility] Cardiology [address] [facility] [address] [place] [address] Amandeep Jorgensen MD PhD from Last 3 Months Surgical History Surgery Date Site/Laterality Comments VARICOSE VEIN SURGERY 07/31/1978 - 07/30/1979 CARDIAC CATHETERIZATION 07/31/2012 - 07/30/2013 INSERT / REPLACE / REMOVE PACEMAKER 08/31/2012 - 09/27/19 13 UPPER GASTROINTESTINAL ENDOSCOPY 07/31/2016 - 07/30/2017 RECTAL PROLAPSE REPAIR, RECTOPEXY 04/30/2018 - 05/30/20 18 SECTION 07/31/1979 - 07/30/1980 COLONOSCOPY 01/09/2017 BLADDER SURGERY 11/28/2018 - 12/28/2018 Intersti Medical History Medical History Date Comments Female bladder prolapse Hypertension Pacemaker Asthma Cough Anxiety Rash Iron deficiency anemia Depression GERD (gastroesophageal reflux disease) PVD (peripheral vascular disease) Seizure (HCC) 01/01/2022 Family History Medical History Relation Name Comments Alzheimer's disease Brother Heart disease Brother Family history of cardiac disorder - (Added by TW Conv) Dementia Father Cancer Mother Family history of malignant neoplasm - (Added by TW Conv) Dementia Mother Hypertension Mother Family history of hypertension - (Added by TW Conv) Heart disease Sister 1 Family history of cardiac disorder - (Added by TW Conv) Heart attack Sister 2 Stroke Sister 2 Family history of cerebrovascular accident - (Added by TW Conv) Anesthesia problems Neg Hx Relation Name Status Comments Brother Father Mother Sister 1 Sister 2 Social History Tobacco Use Types Packs/Day Years Used Date Smoking Tobacco: Never Smokeless Tobacco: Never Tobacco Cessation:Counseling Given: Not Answered Alcohol Use Standard Drinks/Week Comments No 0 (1 standard drink = 0.6 oz pur e alcohol) less than 1 drink per month AUDIT-C Answer Date Recorded Q1: How often do you have a drink containing alc ohol? 2-4 times a month 09/07/2021 Q2: How many drinks containi ng alcohol do you have on a typical day when you are drinking? 1 or 2 09/07/2021 Q3: How often do you have si x or more drinks on one occasion? Never 09/07/2021 PHQ-2 Answer Date Recorded PHQ-2 Score 0 2019 Comments No Sex and Gender Information Value Date Recorded Sex Assigned at Not on file Legal Sex Female 8:52 PM CLAM GRADER Gender Identity Not on file Sexual Orientation Not on file Obstetrics History Para Term AB IAB SAB Ectopic Multiple Livin g Live Births 3 3 3 3 3 Date Outcome GA Total Labor Labor/2nd/3rd Weight Sex Type Anes PTL Yeimy A1 A5 Name Clin Term Vag-S pont Living Term Vag-S pont Living Term CS-Un spec Living Last Filed Vital Signs Vital Sign Reading Time Taken Comments Blood Pressure 120/78 10/28/2024 1:20 PM CDT Pulse 77 10/28/2024 1:20 PM CDT Temperature 36.7 C (98.1 F) 10/28/2024 1:20 PM CDT Respiratory Rate 16 07/11/2022 8:56 AM CLAM GRADER Oxygen Saturation 97% 10/28/2024 1:20 PM CDT Inhaled Oxygen Concentration - - Weight 78 kg (172 lb) 10/28/2024 1:20 PM CDT Height 170.2 cm (5' 7 ) 10/28/2024 1:20 PM CDT Body Mass Index 26.94 10/28/2024 1:20 PM CDT Plan of Treatment Health Maintenance Due Date Last Done Comments Hepatitis C Screening 1945 Osteoporosis Screening-Bone Density Scan 1945 DTaP/Tdap/Td Vaccine (1 - Tdap) 1956 Hepatitis B Screening 1963 Zoster Vaccine (1 of 2) 1995 Well Visit 65+ 2010 Pneumococcal vaccine 65+ (2 of 2 - PPSV23) 05/24/2018 05/24/2017 Depression Screening 2020 2019, 09/06/19 20 Fall Risk Assessment 01/03/2023 01/03/2022, 09/06/19 20 Influenza Vaccine (Season Ended) 2025 05/12/2018, 05/24/2017, 05/25/2014 Colon Cancer Screening-CT Colonography Discontinued 09/19/2019, 01/09/2017 Colon Cancer Screening-Colonoscopy Discontinued 2019, 01/09/2017 Colon Cancer Screening-DNA Stool Discontinued 09/19/19, 01/09/2017 Colon Cancer Screening-FIT Discontinued 09/19, 01/09/2017, 01/06/2017 Colon Cancer Screening-FOBT Discontinued 09/01, 01/09/2017, 01/06/2017 Colon Cancer Screening-Sigmoidoscopy Discontinued 09/01, 01/09/2017 Colorectal Cancer Screening Discontinued Medical Devices Implanted Type Area Buyer Assistant Device Identifier Shelf Expiration Date Model / Serial / Lot Lead (Ra)-09/03/2012 Implanted: 013 by Amandeep Jorgensen MD PhD (Quantity not on file) Lead Heart Medtronic Cardiac Rhythm Mgmt 5086/45 / [id number] 1V / Lead (Rv)-09/03/2012 Implanted: 013 by Amandeep Jorgensen MD PhD (Quantity not on file) Lead Heart Medtronic Cardiac Rhythm Mgmt 5086/52 / [id number] / [employer] Toro [id number] Upsylon 35.4cm Elongation Profile Lightweight Large Pore Low - [id number] Implanted:Qty: 1 on 05/18/2018 by Ketty Jorgensen MD at [facility] Mesh N/A: Pelvis [employer] Toro [id number] 01/27/2021 [id number] / / [id number] Medtronic Cardiac Rhythm Mgmt [id number] Celada S Mri Surescan 50.8x46.6mm 2 Chamber 7.4mm Pacemaker 22.5gm - [id number] - [id number] Implanted:Qty: 1 on 09/07/2021 by Amandeep Jorgensen MD PhD at [facility] Pacemaker N/A: Chest Medtronic Inc 01/25/2023 [id number] / [id number] / [employer] Toro [id number] Upsylon 35.4cm Elongation Profile Lightweight Large Pore Low Rectum [employer] Toro [id number] 01/27/2021 [id number] / / [id number] Medtronic Neuro 3889-28 Interstim 28cm Quadripolar Lead Neurostimulator - [id number] Implanted:Qty: 1 on 12/05/2018 by Sallie Buitrago MD at [facility] Medtronic Neuro 10/18/2022 3889-28 / / [id number] Medtronic Neuro 3058 Interstim Ii 2inx1.7in 4 Electrode Air Pollution Specialist Sacral Nerve - [id number] - [id number] Implanted:Qty: 1 on 12/19/2018 by Sallie Buitrago MD at [facility] Medtronic Neuro 05/13/2020 3058 / [id number] / Explanted Type Area Buyer Assistant Device Identifier Shelf Expiration Date Model / Serial / Lot Pacemaker-2012 Implanted:10/2012 (Quantity not on file) Explanted:02/2022 by Amandeep Jorgensen MD PhD (Quantity not on file) Pacemaker Left: Chest Wall Medtronic [id number] / [id number] / Procedures Procedure Name Priority Date/Time Associated Diagnosis Comments DEVICE CHECK - IN OFFICE Routine 10/02/2024 10:25 AM CLAM GRADER CHB (complete heart block) (HCC) Fitting or adjustment of cardiac pacemaker DEVICE CHECK - REMOTE Routine 09/24/2024 2:32 AM CLAM GRADER COLONOSCOPY 09/19/2019 10:08 AM CLAM GRADER from Last 3 Months or Most Recently Relevant to Health Maintenance Results * DEVICE CHECK - IN OFFICE (10/02/2024 10:25 AM CLAM GRADER) Anatomical Region Laterality Modality Other 10/02/2024 2:00 AM CLAM GRADER Narrative 10/19/2024 8:38 PM CDT Interpretation Summary: Battery and Leads (BL) Normal battery parameters Capture threshold chronically elevated Presenting Rhythm (DE) Atrial Sensing-Ventricular Pacing (-RECHARGER) Arrhythmic events (AE) No new arrhythmic events in monitoring period Miscellaneous Observations (MISC) Pacing dependence in the Ventricle Transmission Information (TI) Device Summary Report Procedure Note Amandeep Jorgensen MD PhD - 10/19/2024 Interpretation Summary: Battery and Leads (BL) Normal battery parameters Capture threshold chronically elevated Presenting Rhythm (DE) Atrial Sensing-Ventricular Pacing (-RECHARGER) Arrhythmic events (AE) No new arrhythmic events in monitoring period Miscellaneous Observations (MISC) Pacing dependence in the Ventricle Transmission Information (TI) Device Summary Report Diaz Abraham MD [facility] PROCEDURES Final Result * DEVICE CHECK - REMOTE (09/24/2024 2:32 AM CLAM GRADER) Anatomical Region Laterality Modality Other 09/24/2024 2:32 AM CLAM GRADER Narrative 10/04/2024 8:59 AM CLAM GRADER Interpretation Summary: Battery and Leads (BL) Normal parameters noted on battery and lead(s) --- 5.4 yrs remaining longevity (implanted 2021). Lead impedance and threshold trends stable and appropriate. No short V-V intervals. P wave out of range --- P wave 0.9 mV. trend shows decline over the past year. Atrial sensitivity is programmed 0.3 mV. Presenting Rhythm (DE) Atrial Sensing-Ventricular Pacing (-RECHARGER) --- /RECHARGER 60s. Arrhythmic events (AE) No new arrhythmic events in monitoring period --- Since 06/25/24: No AHR or VHR episodes. Miscellaneous Observations (MISC) Pacing dependence in the Ventricle Transmission Information (TI) Device Summary Report Follow Up (FU) Patient's primary treating physician will be apprised of findings Procedure Note Amandeep Jorgensen MD PhD - 10/04/2024 Interpretation Summary: Battery and Leads (BL) Normal parameters noted on battery and lead(s) --- 5.4 yrs remaininglongevity (implanted 2021). Lead impedance and threshold trends stableand appropriate. No short V-V intervals. P wave out of range --- P wave 0.9 mV. trend shows decline over the pastyear. Atrial sensitivity is programmed 0.3 mV. Presenting Rhythm (DE) Atrial Sensing-Ventricular Pacing (-RECHARGER) --- /RECHARGER 60s. Arrhythmic events (AE) No new arrhythmic events in monitoring period --- Since 06/25/24: No AHRor VHR episodes. Miscellaneous Observations (MISC) Pacing dependence in the Ventricle Transmission Information (TI) Device Summary Report Follow Up (FU) Patient's primary treating physician will be apprised of findings Amandeep Jorgensen MD PhD [facility] PROCEDURES Final Result * COLONOSCOPY (09/19/2019 10:08 AM CLAM GRADER) Anatomical Region Laterality Modality Other Narrative Procedure Note Johnathan Baeza MD - 09/19/2019 10:08 AM CST [facility] Patient Name: Alma Akbar Procedure Date: 09/19/2019 10:08 AM Date of : 1945 Admit Type: Outpatient Age: 74 Gender: Female Attending MD: Johnathan Baeza M.D. Room: [facility] RO[facility] 2 Note Status: Finalized Patient Profile: Refer to note in patient chart for documentation of history and physical. Procedure: Colonoscopy Indications: Iron deficiency anemia Referring MD: Johnathan Jones DO Providers: Johnathan Baeza M.D. Impression: - Hemorrhoids found on perianal exam. - Diverticulosis in the sigmoid colon, in the descending colon and in the transverse colon. - One 5 mm polyp in the rectum, removed with a hot biopsy forceps and removed with a hot snare.Resected and retrieved. - The examination was otherwise normal. Recommendation: - Discharge patient to home. - Resume previous diet. - Continue present medications. - Await pathology results. - Repeat colonoscopy in 5 years for surveillance. - Return to primary care physician as previously scheduled. Medicines: Propofol per Anesthesia Complications: No immediate complications. Estimated Blood Loss: Estimated blood loss: none. Procedure: Pre-Anesthesia Assessment: - This assessment was completed [Time of Assessment] prior to the administration of sedation. The benefits, risks and alternatives of theprocedure and sedation were discussed and informed consent was obtained. All questions were answered. Please referto the signed informed consent document in the medical record. The scope was passed under direct vision.The Colonoscope [id number] was introducedthrough the anus and advanced to the the cecum, identifiedby appendiceal orifice and ileocecal valve. The qualityof the bowel preparation was [Prep Quality]. The bowel preparation used was Miralax. The bowel preparation used was bisacodyl tablets. Bowel prep wasadministered using a single dose. The colonoscopy was performedwith moderate difficulty due to poor bowel prep withstool present. The patient tolerated the procedure well. Findings: Hemorrhoids were found on perianal exam. Multiple small and large-mouthed diverticula were found in thesigmoid colon, descending colon and transverse colon. A 5 mm polyp was found in the rectum. The polyp was sessile. Thepolyp was removed with a hot biopsy forceps. The polyp was removed with ahot snare. Resection and retrieval were complete. Verification of patient identification for the specimen was done by the physician and nurse using the patient's name and date. Estimated blood loss was minimal. The exam was otherwise without abnormality. Electronically signed by Johnathan Baeza M.D. Johnathan Baeza M.D. 09/19/2019 11:28:53 AM Number of Addenda: 0 Note Initiated On: 09/19/2019 10:08 AM Procedure Code(s): --- Professional --- 91967, Colonoscopy, flexible; with removal of tumor(s), polyp(s), or other lesion(s) by snare technique Diagnosis Code(s): --- Professional --- K57.30, Diverticulosis of large intestine without perforation orabscess without bleeding D50.9, Iron deficiency anemia, unspecified K62.1, Rectal polyp K64.9, Unspecified hemorrhoids CPT copyright 2017 [employer]. All rights reserved. The codes documented in this report are preliminary and upon podiatry professor reviewmay be revised to meet current compliance requirements. Recognized by the [employer] for promoting quality in endoscopy Johnathan Baeza MD ENDOSCOPY PROCEDURES Final Re sult from Last 3 Months or Most Recently Relevant to Health Maintenance Insurance [employer] MEDICARE ADVANTAGE FOR[facility]LY [facility] MEDICARE [employer] MEDICARE Advance Directives For more information, please contact: [phone] Documents on File Type Date Recorded Patient Family And Divorce Legal Assistant Expl anation Power of Handwriting Expert 01/17/2022 10:15 AM ADVANCE DIRECTIVE 08/05/2003 8:03 AM * Full Code (Latest Code Status on File) Date Activated Date Inactivated Comments 01/01/2022 9:25 PM 01/03/2022 4:52 PM * Full Code Date Activated Date Inactivated Comments 09/07/2021 9:18 AM 09/07/2021 4:46 PM * Full Code Date Activated Date Inactivated Comments 09/19/2019 10:14 AM 09/19/2019 4:34 PM * Full Code Date Activated Date Inactivated Comments 09/19/2019 10:14 AM 09/19/2019 10:14 AM * Full Code Date Activated Date Inactivated Comments 12/19/2018 12:08 PM 12/20/2018 1:24 PM Care Teams Pattern Painter Relationship Specialty Start Date End Date Johnathan Jones DO PCP - General 10/05/16 Talib Glass MD [address] [place] [address] Consulting Physician Neurology 01/03/22
--- OUTSIDE RECORDS SUMMARY | 2024-12-09 11:23 | XMS_ITS | Encounter Summary ---
Author Organization [facility] Address [address] [place] [address] Phone Care Team Providers Care Administrative Technician Name Role Phone Johnathan Jones DO Primary Care Provider [phone] Talib Glass MD Unavailable [phone] Encounter Details Date Type Department Care Team (Latest Contact Info) Description 12/23/2021 Orders Only [facility] Scanning, Provider Social History Tobacco Use Types Packs/Day Years Used Date Smoking Tobacco: Never Smokeless Tobacco: Never Alcohol Use Standard Drinks/Week Comments No 0 [...] on file Legal Sex Female 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 Gender Identity Not on file Sexual Orientation Not on file documented as of this encounter Plan of Treatment Not on file documented as of this encounter Procedures Procedure Name Priority Date/Time Associated Diagnosis Comments CARDIOLOGY DOCUMENT SCAN 12/23/2021 documented in this encounter Results * CARDIOLOGY DOCUMENT SCAN (12/23/2021) Anatomical Region Laterality Modality Other us Provider Scanning [facility] PROCEDURES Final Result documented in this encounter Visit Diagnoses Not on filedocumented in this encounter Care Teams Administrative Technician Relationship Specialty Start Date End Date Johnathan Jones DO PCP - General 10/05/16 Talib Glass MD [address] [address] Consulting Physician Neurology 01/03/22 documented as of this encounter
--- OUTSIDE RECORDS SUMMARY | 2024-12-09 11:23 | XMS_ITS | Encounter Summary ---
Author Organization [facility] Address [address] [place] [address] Phone Care Team Providers Care Grain Sampler Name Role Phone Johnathan Jones DO Primary Care Provider [phone]- [phone] Talib Glass MD Unavailable [phone] Encounter Details Date Type Department Care Team (Late st Contact Info) Description 09/19/2017 Orders Only [facility] Provider, MD Katelin [address] [place] [address] Social History Tobacco Use Types Packs/Day Years Used Date Smoking Tobacco: Never Assessed Comments Unknown Sex and Gender Information Value Date Recorded Sex Assigned at Not on file Legal Sex Female 8:52 PM INDUSTRIAL EQUIPMENT WIRER Gender Identity Not on file Sexual Orientation Not on file documented as of this encounter Plan of Treatment Not on file documented as of this encounter Procedures Procedure Name Priority Date/Time Associated Diagnosis Comments CARDIOLOGY REPORT 09/19/2017 documented in this encounter Results * CARDIOLOGY REPORT (09/19/2017) Anatomical Region Laterality Modality Other Narrative 09/19/2017 Ordered by an unspecified provider. Historical Provider [facility]AE[facility] Final Result documented in this encounter Visit Diagnoses Not on filedocumented in this encounter Care Teams Grain Sampler Relationship Specialty Start Date End Date Johnathan Jones DO PCP - General 10/05/16 Talib Glass MD [address] [facility] [address] [place] [address] Consulting Physician Neurology 01/03/22 documented as of this encounter
--- OUTSIDE RECORDS SUMMARY | 2024-12-09 11:23 | XMS_ITS | Encounter Summary ---
Author Organization [facility] Address [address] [place] [address] Phone Care Team Providers Care Barrel Inspector Name Role Phone Johnathan Jones DO Primary Care Provider [phone] Talib Glass MD Unavailable [phone] Encounter Details Date Type Department Care Team (Late st Contact Info) Description 06/12/2016 Orders Only [facility] Provider, MD Katelin [address] [place] [address] Social History Tobacco Use Types Packs/Day Years Used Date Smoking Tobacco: Never Assessed Comments Unknown Sex and Gender Information Value Date Recorded Sex Assigned at Not on file Legal Sex Female 8:52 PM SPANISH SPEAKING NANNY Gender Identity Not on file Sexual Orientation Not on file documented as of this encounter Plan of Treatment Not on file documented as of this encounter Procedures Procedure Name Priority Date/Time Associated Diagnosis Comments CARDIOLOGY REPORT 06/12/2016 CARDIOLOGY REPORT 06/12/2016 documented in this encounter Results * CARDIOLOGY REPORT (06/12/2016) Anatomical Region Laterality Modality Other Narrative 06/12/2016 Ordered by an unspecified provider. Historical Provider [facility] Final Result * CARDIOLOGY REPORT (06/12/2016) Anatomical Region Laterality Modality Other Narrative 06/12/2016 Ordered by an unspecified provider. us Historical Provider [facility] Final Result documented in this encounter Visit Diagnoses Not on filedocumented in this encounter Care Teams Barrel Inspector Relationship Specialty Start Date End Date Johnathan Jones DO PCP - General 10/05/16 Talib Glass MD [address] [facility] [address] [place] [address] Consulting Physician Neurology 01/03/22 documented as of this encounter
--- OUTSIDE RECORDS SUMMARY | 2024-12-09 11:23 | XMS_ITS | Encounter Summary ---
Author Organization [facility] Address [address] 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 Historical Provider [facility] BAE[facility] Final Result documented in this encounter Visit Diagnoses Not on filedocumented in this encounter Care Teams Senior Manufacturing Supervisor Relationship Specialty Start Date End Date Johnathan Jones DO PCP - General 10/05/16 Talib Glass MD [address] [facility] [address] [place] [address] Consulting Physician Neurology 01/03/22 documented as of this encounter
--- OUTSIDE RECORDS SUMMARY | 2024-12-09 11:24 | XMS_ITS | Encounter Summary ---
Author Organization [facility] Address [address] [place] [address] Phone Care Team Providers Care Union Carpenter Name Role Phone Johnathan Jones DO Primary Care Provider [phone] Talib Glass MD Unavailable [phone] Encounter Details Date Type Department Care Team (Late st Contact Info) Description 10/05/2014 Orders Only [facility] Provider, MD Katelin [address] [place] [address] Social History Tobacco Use Types Packs/Day Years Used Date Smoking Tobacco: Never Assessed Comments Unknown Sex and Gender Information Value Date Recorded Sex Assigned at Not on file Legal Sex Female 8:52 PM MANAGER COST Gender Identity Not on file Sexual Orientation Not on file documented as of this encounter Plan of Treatment Not on file documented as of this encounter Procedures Procedure Name Priority Date/Time Associated Diagnosis Comments CARDIOLOGY REPORT 10/05/2014 documented in this encounter Results * CARDIOLOGY REPORT (10/05/2014) Anatomical Region Laterality Modality Other Narrative 10/05/2014 Ordered by an unspecified provider. Historical Provider [facility]AE[facility] Final Result documented in this encounter Visit Diagnoses Not on filedocumented in this encounter Care Teams Union Carpenter Relationship Specialty Start Date End Date Johnathan Jones DO PCP - General 10/05/16 Talib Glass MD [address] [facility] [address] [place] [address] Consulting Physician Neurology 01/03/22 documented as of this encounter
--- OUTSIDE RECORDS SUMMARY | 2024-12-09 11:24 | XMS_ITS | Referral Summary ---
Author Organization [facility] Address [address] [place] [address] Care Team Providers Care Property Insurance Claims Examiner Name Role Phone Johnathan Jones DO Primary Care Provider [phone] Talib Glass MD Unavailable Encounters Date Type Department Care Team Description 11/01/2024 Documentation [facility] [address] Floor [address] [place] [address] Marya Underwood, DRUM BUILDER 11/01/2024 Telephone [facility] [address] Floor [address] [place] [address] Marya Underwood, DRUM BUILDER 10/28/2024 1:45 PM CDT Office Visit [facility] [address] [facility] [address] 6th Floor [address] [place] [address] Forrest Perea NP Mild cognitive impairment (Primary Dx) 10/02/2024 10:45 AM TOPPER PRESS OPERATOR AUTOMATIC Office Visit [facility] 8th [place] [address] [place] [address] Amandeep Jorgensen MD PhD CHB (complete heart block) (HCC) (Primary Dx) 10/02/2024 10:15 AM TOPPER PRESS OPERATOR AUTOMATIC Ancillary Procedure [facility] [address] [facility] 8th [place] [address] [place] [address] CHB (complete heart block) (HCC); Fitting or adjustment of cardiac pacemaker 09/24/2024 Orders Only [facility] [address] [facility] [address] [place] [address] Amandeep Jorgensen MD PhD from Last 3 Months Allergies Active Allergy Reactions Criticality Noted Date [...] capsule (200 mg total) by mouth nightly Active omeprazole (PriLOSEC) 40 mg capsuleIndicat ions:Stress [...] total) by mouth daily 30 tablet 1 022 Active Wegovy 0.5 mg/0.5 mL auto-injector 0.5 MG (0.5 ML) SUBCUTANEOUSLY WEEKLY 025 Active donepeziL (ARICEPT) 10 mg tablet Take [...] month if well tolerated. Suggested CS install Zylie the Bear on the patient's/his phone. Also asked him [...] 01/01/2022 Assessment & Plan (07/11/2022 9:09 AM TOPPER PRESS OPERATOR AUTOMATIC): No further seizures. Workup has been negative. Follow up p.r.n.. Complete heart block (CMS/HCC) 09/26/2019 Lower extremity edema 09/26/2019 Anemia 2019 Assessment & Plan (2019 2:25 PM TOPPER PRESS OPERATOR AUTOMATIC): Hb 8 last week and now on iron and feeling better. Review of our records las Hb 05/17 was 10.6. Our records show anemia back to 2017. EGD and HH with praanv's ulcers, colon small polyp,tics and roids. She has no sx/signs to suggest source of bleeding so will proceed with EGD/Colonoscopy/ and capsule. Recurrent UTI 09/02/2019 Vaginal atrophy 09/02/2019 Pelvic floor dysfunction in female 09/02/2019 Urinary retention 10/30/2018 Overview (10/30/2018): Added automatically from request for surgery [id number] Retention of urine 10/30/2018 Overview (10/30/2018): Added automatically from request for surgery [id number] Rectocele 05/01/2018 Dyspnea on exertion 09/14/2016 Cardiac pacemaker in situ 09/11/2012 Overview (12/19/2023): Medtronic Revo Complete heart block 09/03/2012 Social History Tobacco Use Types Packs/Day Years [...] on file Legal Sex Female 8:52 PM TOPPER PRESS OPERATOR AUTOMATIC Gender Identity Not on file Sexual Orientation Not on file Last Filed Vital Signs Vital Sign Reading Time Taken Comments Blood Pressure 120/78 10/28/2024 1:20 PM CDT Pulse 77 10/28/2024 1:20 PM CDT Temperature 36.7 C (98.1 F) 10/28/2024 1:20 PM CDT Respiratory Rate 16 07/11/2022 8:56 AM TOPPER PRESS OPERATOR AUTOMATIC Oxygen Saturation 97% 10/28/2024 1:20 PM CDT Inhaled Oxygen Concentration - - Weight 78 kg (172 lb) 10/28/2024 1:20 PM CDT Height 170.2 cm (5' 7 ) 10/28/2024 1:20 PM CDT Body Mass Index 26.94 10/28/2024 1:20 PM CDT Plan of Treatment Not on file Medical Devices Implanted Type Area Glove Tagger Device Identifier Shelf Expiration Date Model / Serial / Lot Lead (Ra)-09/03/2012 Implanted: 013 by Amandeep Jorgensen MD PhD (Quantity not on file) Lead Heart Medtronic Cardiac Rhythm Mgmt 5086/45 / [id number] 1V / Lead (Rv)-09/03/2012 Implanted: 013 by Amandeep Jorgensen MD PhD (Quantity not on file) Lead Heart Medtronic Cardiac Rhythm Mgmt 5086/52 / [id number] 6V / [employer] Toro [id number] Upsylon 35.4cm Elongation Profile Lightweight Large Pore Low - [id number] Implanted:Qty: 1 on 05/18/2018 by Ketty Jorgensen MD at [facility] Mesh N/A: Pelvis [employer] Toro [id number] 01/27/2021 [id number] / / [id number] Medtronic Cardiac Rhythm Mgmt [id number] [place] S Mri Surescan 50.8x46.6mm 2 Chamber 7.4mm Pacemaker 22.5gm - [id number] - [id number] Implanted:Qty: 1 on 09/07/2021 by Amandeep Jorgensen MD PhD at [facility] Pacemaker N/A: Chest Medtronic Inc 01/25/2023 [id number] / [id number] 4G / [employer] Toro [id number] Upsylon 35.4cm Elongation Profile Lightweight Large Pore Low Rectum [employer] Toro [id number] 01/27/2021 [id number] / / [id number] Medtronic Neuro 3889-28 Interstim 28cm Quadripolar Lead Neurostimulator - [id number] Implanted:Qty: 1 on 12/05/2018 by Sallie Buitrago MD at [facility] Medtronic Neuro 10/18/2022 3889-28 / / [id number] Medtronic Neuro 3058 Interstim Ii 2inx1.7in 4 Electrode Directory Clerk Sacral Nerve - [id number] - [id number] Implanted:Qty: 1 on 12/19/2018 by Sallie Buitrago MD at [facility] Medtronic Neuro 05/13/2020 3058 / [id number] / Explanted Type Area Glove Tagger Device Identifier Shelf Expiration Date Model / Serial / Lot Pacemaker-2012 Implanted:10/2012 (Quantity not on file) Explanted:02/2022 by Amandeep Jorgensen MD PhD (Quantity not on file) Pacemaker Left: Chest Wall Medtronic [id number] / [id number] / Procedures Procedure Name Priority Date/Time Associated Diagnosis Comments DEVICE CHECK - IN OFFICE Routine 10/02/2024 10:25 AM TOPPER PRESS OPERATOR AUTOMATIC CHB (complete heart block) (HCC) Fitting or adjustment of cardiac pacemaker DEVICE CHECK - REMOTE Routine 09/24/2024 2:32 AM TOPPER PRESS OPERATOR AUTOMATIC COLONOSCOPY 09/19/2019 10:08 AM TOPPER PRESS OPERATOR AUTOMATIC from Last 3 Months or Most Recently Relevant to Health Maintenance Results * DEVICE CHECK - IN OFFICE (10/02/2024 10:25 AM TOPPER PRESS OPERATOR AUTOMATIC) Anatomical Region Laterality Modality Other 10/02/2024 2:00 AM TOPPER PRESS OPERATOR AUTOMATIC Narrative 10/19/2024 8:38 PM CDT Interpretation Summary: Battery and Leads (BL) Normal battery parameters Capture threshold chronically elevated Presenting Rhythm (KY) Atrial Sensing-Ventricular Pacing (-MULE TENDER) Arrhythmic events (AE) No new arrhythmic events in monitoring period Miscellaneous Observations (MISC) Pacing dependence in the Ventricle Transmission Information (TI) Device Summary Report Procedure Note Amandeep Jorgensen MD PhD - 10/19/2024 Interpretation Summary: Battery and Leads (BL) Normal battery parameters Capture threshold chronically elevated Presenting Rhythm (KY) Atrial Sensing-Ventricular Pacing (-MULE TENDER) Arrhythmic events (AE) No new arrhythmic events in monitoring period Miscellaneous Observations (MISC) Pacing dependence in the Ventricle Transmission Information (TI) Device Summary Report Diaz Abraham MD CV CARDIAC SERVICES PROCEDURES Final Result * DEVICE CHECK - REMOTE (09/24/2024 2:32 AM TOPPER PRESS OPERATOR AUTOMATIC) Anatomical Region Laterality Modality Other 09/24/2024 2:32 AM TOPPER PRESS OPERATOR AUTOMATIC Narrative 10/04/2024 8:59 AM TOPPER PRESS OPERATOR AUTOMATIC Interpretation Summary: Battery and Leads (BL) Normal parameters noted on battery and lead(s) --- 5.4 yrs remaining longevity (implanted 2021). Lead impedance and threshold trends stable and appropriate. No short V-V intervals. P wave out of range --- P wave 0.9 mV. trend shows decline over the past year. Atrial sensitivity is programmed 0.3 mV. Presenting Rhythm (KY) Atrial Sensing-Ventricular Pacing (-MULE TENDER) --- /MULE TENDER 60s. Arrhythmic events (AE) No new arrhythmic [...] sensitivity is programmed 0.3 mV. Presenting Rhythm (KY) Atrial Sensing-Ventricular Pacing (-MULE TENDER) --- /MULE TENDER 60s. Arrhythmic events (AE) No new arrhythmic events in monitoring period --- Since 06/25/24: No AHRor VHR episodes. Miscellaneous Observations (MISC) Pacing dependence in the Ventricle Transmission Information (TI) Device Summary Report Follow Up (FU) Patient's primary treating physician will be apprised of findings Amandeep Jorgensen MD PhD CV CARDIAC SERVICES PROCEDURES Final Result * COLONOSCOPY (09/19/2019 10:08 AM TOPPER PRESS OPERATOR AUTOMATIC) Anatomical Region Laterality Modality Other Narrative Procedure Note Johnathan Baeza MD - 09/19/2019 10:08 AM CST [facility] Patient Name: Alma Akbar Procedure Date: 09/19/2019 10:08 AM Date of : 1945 Admit Type: Outpatient Age: 74 Gender: Female Attending MD: Johnathan Bazea M.D. Room: [facility] RO[facility] 2 Note [...] scope was passed under direct vision.The Colonoscope [id number] was introducedthrough the anus and advanced to [...] 10:08 AM Procedure Code(s): --- Professional --- 09707, Colonoscopy, flexible; with removal of tumor(s), polyp(s), or other lesion(s) by snare technique Diagnosis Code(s): --- Professional --- K57.30, Diverticulosis of large intestine without perforation orabscess without bleeding D50.9, Iron deficiency anemia, unspecified K62.1, Rectal polyp K64.9, Unspecified hemorrhoids CPT copyright 2017 [employer]. All rights reserved. The codes documented in this report are preliminary and upon relay mechanic reviewmay be revised to meet current compliance requirements. Recognized by the [employer] for promoting quality in endoscopy Johnathan Baeza MD ENDOSCOPY PROCEDURES Final Re sult from Last 3 Months or Most Recently Relevant to Health Maintenance Insurance [employer] MEDICARE ADVANTAGE [facility] MEDICARE [facility] MEDICARE Advance Directives For more information, please contact: [phone] Documents on File Type Date Recorded Patient Director Data Architecture Expl anation Power of Environmental Service Aide 01/17/2022 10:15 AM ADVANCE DIRECTIVE 08/05/2003 8:03 [...] 12:08 PM 12/20/2018 1:24 PM Care Teams Property Insurance Claims Examiner Relationship Specialty Start Date End Date Johnathan Jones DO PCP - General 10/05/16 Talib Glass MD [address] [facility] [address] [place] [address] Consulting Physician Neurology 01/03/22
--- OUTSIDE RECORDS SUMMARY | 2024-12-09 11:24 | XMS_ITS | Clinical Summary ---
Author Organization [facility] Address [address] [place] [address] Phone Care Team Providers Care Second Butler Name Role Phone GenomishaJohnathan quick Primary Care Provider Allergies Active Allergy Reactions Criticality Noted Date Comments Sulfamethoxazole-Trimetho prim Rash 01/23/2018 Patient developed hand and leg cramps along with rash. Medications escitalopram (LEXAPRO) 10 MG Tablet 12/19/2017 Active losartan (COZAAR) 50 MG Tablet TK 1 T PO D 0 11/21/2017 Active PROAIR HFA 108 (90 Base) MCG/ACT Aerosol Solution 12/04/2017 Active Family History Medical History Relation Name Comments Cancer Mother eye cancer, lym ph nodes cancer, vaginal lip cancer Relation Name Status Comments Mother Social History Tobacco Use Types Packs/Day Years Used Date Smoking Tobacco: Never Smokeless Tobacco: Never Alcohol Use Standard Drinks/Week Comments Yes 0 (1 standard drink = 0.6 oz pur e alcohol) very rare Sexually Active Control Partners Comments Yes Male Comments No Sex and Gender Information Value Date Recorded Sex Assigned at Not on file Legal Sex Female 11:08 AM CDT Gender Identity Not on file Sexual Orientation Not on file Last Filed Vital Signs Vital Sign Reading Time Taken Comments Blood Pressure 132/88 01/12/2018 8:59 AM CDT Pulse 64 01/12/2018 8:59 AM CDT Temperature 36.3 C (97.3 F) 01/12/2018 8:59 AM CDT Respiratory Rate - - Oxygen Saturation 95% 01/12/2018 8:59 AM CDT Inhaled Oxygen Concentration - - Weight 99.4 kg (219 lb 3.2 oz) 01/12/2018 8:59 A M CDT Height 172.7 cm (5' 8 ) 01/12/2018 8:59 AM CDT Body Mass Index 33.33 01/12/2018 8:59 AM CDT Plan of Treatment Health Maintenance Due Date Last Done Comments DEXA Bone Density 1945 Hepatitis C Virus (HCV) Screening 1945 TdaP Immunization 1945 Zoster Immunization (1 of 2) 1995 Pneumococcal Immunization (50+ years) (2 of 2 - PPSV23) 05/24/2018 05/24/2017 Respiratory Syncytial Virus (RSV) Immunization (Adult) (1 - 1-dose 75+ series) 2020 Influenza Immunization (#1) 03/31/202405/01, 05/25/2014 SARS-COV-2 Immunization ( - season) 2024 10/19/2020, 09/10/2020 Pneumococcal Immunization Combined Discontinued 05/24/2017 Hepatitis B Immunization Aged Out No longer eligible based on patient's age to complete this topic Meningococcal Immunization (ACWY) Aged Out No longer eligible based on patient's age to complete this topic Rotavirus Immunization Aged Out No lo nger eligible based on patient's age to complete this topic Care Teams Second Butler Relationship Specialty Start Date End Date Johnathan Jones DO [address] [place] [address] PCP - General Internal Medicine 12/29/17
--- OUTSIDE RECORDS SUMMARY | 2024-12-09 11:24 | XMS_ITS | Encounter Summary ---
Author Organization [facility] Address [address] [facility] [address] Phone Care Team Providers Care Lining Scrubber Name Role Phone Johnathan Jones DO Primary Care Provider [phone] Talib Glass MD Unavailable [phone] Encounter Details Date Type Department Care Team (Late st Contact Info) Description 08/13/2014 Orders Only [facility] Provider, MD Katelin [address] [place] [address] Social History Tobacco Use Types Packs/Day Years Used Date Smoking Tobacco: Never Assessed Comments Unknown Sex and Gender Information Value Date Recorded Sex Assigned at Not on file Legal Sex Female 8:52 PM DANCE THERAPIST Gender Identity Not on file Sexual Orientation Not on file documented as of this encounter Plan of Treatment Not on file documented as of this encounter Procedures Procedure Name Priority Date/Time Associated Diagnosis Comments CARDIOLOGY REPORT 08/13/2014 documented in this encounter Results * CARDIOLOGY REPORT (08/13/2014) Anatomical Region Laterality Modality Other Narrative 08/13/2014 Ordered by an unspecified provider. Historical Provider [facility] HU[facility]ON BAEZ Final Result documented in this encounter Visit Diagnoses Not on filedocumented in this encounter Care Teams Lining Scrubber Relationship Specialty Start Date End Date Johnathan Jones DO PCP - General 10/05/16 Talib Glass MD [address] [facility] [address] [place] [address] Consulting Physician Neurology 01/03/22 documented as of this encounter
--- OUTSIDE RECORDS SUMMARY | 2024-12-09 11:24 | XMS_ITS | Encounter Summary ---
Author Organization [facility] Address [address] [place] [address] Phone Care Team Providers Care Courtroom Reporter Name Role Phone Johnathan Jones DO Primary Care Provider [phone] Talib Glass MD Unavailable [phone] Encounter Details Date Type Department Care Team (Late st Contact Info) Description 08/19/2015 Orders Only [facility] Provider, MD Katelin [address] [place] [address] Social History Tobacco Use Types Packs/Day Years Used Date Smoking Tobacco: Never Assessed Comments Unknown Sex and Gender Information Value Date Recorded Sex Assigned at Not on file Legal Sex Female 8:52 PM CODE CLERK Gender Identity Not on file Sexual Orientation Not on file documented as of this encounter Plan of Treatment Not on file documented as of this encounter Procedures Procedure Name Priority Date/Time Associated Diagnosis Comments CARDIOLOGY REPORT 08/19/2015 documented in this encounter Results * CARDIOLOGY REPORT (08/19/2015) Anatomical Region Laterality Modality Other Narrative 08/19/2015 Ordered by an unspecified provider. Historical Provider [facility] Final Result documented in this encounter Visit Diagnoses Not on filedocumented in this encounter Care Teams Courtroom Reporter Relationship Specialty Start Date End Date Johnathan Jones DO PCP - General 10/05/16 Talib Glass MD [address] [facility] [address] [place] [address] Consulting Physician Neurology 01/03/22 documented as of this encounter
--- OUTSIDE RECORDS SUMMARY | 2024-12-09 11:24 | XMS_ITS | Clinical Summary ---
Author Organization [email or web address] Address [address] [place] [address] Care Team Providers Care Java Programming Professor Name Role Phone Johnathan Jones DO Primary Care Provider [phone] Malcolm Gama MD Unavailable [phone] Amandeep Jorgensen MD Unavailable [phone] Source Comments [facility],non-owned Affiliates and Associated Physician Practices is amultiple site organization consisting of ambulatory clinics and hospital sitesin [place], [place], [place] and [place]. This disclosure is being madepursuant to the Care Everywhere program and may not contain all information available regarding this patient. Last updated 18.[email or web address] Allergies Active Allergy Reactions Criticality Noted Date Comments Meperidine Anaphylaxis,Swelling High 09/03/2012 Reaction: THROAT SWELLING, Scopolamine Anaphylaxis High 09/03/2012 Reaction: THROAT SWELLING, Sulfamethoxazole W-Trimethoprim Rash Medium 01/23/2018 Patient developed hand and leg cramps along with rash. Patient developed hand and leg cramps along with rash. Medications * Be aware that medications may not be up to date on this document. Alwaysverify current medications with the patient. escitalopram (LEXAPRO) 10 MG tablet Take 1 (one) tablet by mouth at bedtime 03/08/2021 Active FEROSUL 325 (65 Fe) MG tablet Take 1 (one) tablet by mouth 2 times daily 01/13/2021 Active losartan (COZAAR) 50 MG tablet Take 1 (one) tablet by mouth once daily 01/13/2021 Active omeprazole (PRILOSEC) 40 MG capsule Take 1 (one) capsule by mouth once daily 03/15/2021 Active Other Take 1 tablet by mouth 2 times daily Brain booster vitamin Active Other Take 1 tablet by mouth once daily Fruit and veggie tablet Active Loratadine 10 MG Take by mouth as needed Active Melatonin 10 MG Take by mouth nightly as needed Active LORazepam (Ativan) 0.5 MG tablet Take 1 (one) tablet by mouth every 12 hours as needed for Anxiety Active celecoxib (CeleBREX) 200 MG capsule TAKE 1 CAPSULE BY MOUTH TWICE A DAY 180 capsule 3 06/27/2023 Active escitalopram (Lexapro) 20 MG tablet Take 1 (one) tablet by mouth at bedtime 08/11/2024 Active Active Problems Problem Noted Date Diagnosed Date Post-operative state 04/26/2023 Hammertoe of right foot 03/27/2023 Essential hypertension 01/02/2022 Chronic anxiety 01/02/2022 Convulsions 01/01/2022 Primary osteoarthritis of both knees 04/02/2021 Lower extremity edema 09/26/2019 Anemia 2019 Overview (04/02/2021): Last Assessment & Plan: Hb 8 last week and now on iron and feeling better. Review of our records las Hb 05/17 was 10.6. Our records show anemia back to 2017. EGD and HH with pranav's ulcers, colon small polyp,tics and roids. She has no sx/signs to suggest source of bleeding so will proceed with EGD/Colonoscopy/ and capsule. Pelvic floor dysfunction in female 09/02/2019 Recurrent UTI 09/02/2019 Vaginal atrophy 09/02/2019 Resolved Problems Problem Noted Date Diagnosed Date Resolved Date Strain of right hamstring 04/02/2021 Social History Tobacco Use Types Packs/Day Years Used Date Smoking Tobacco: Never Smokeless Tobacco: Never Tobacco Cessation:Counseling Given: Not Answered Alcohol Use Standard Drinks/Week Comments Not Currently 0 (1 standard drink = 0.6 oz pur e alcohol) rare OASIS D0700: Social Isolation Answer Da te Recorded Frequency of experiencing loneliness or isolatio n Never 08/12/2022 OASIS A1250: Transportation Answer Date Recorded Lack of Transportation (Medical) No 08/12/2022 Lack of Transportation (Non-Medical) No 08/12/2022 Patient Unable or Declines to Respond No 08/12/2022 OASIS B1300: Health Literacy Answer Enrique e Recorded Frequency of needing help to read materials from doctor or pharmacy Never 08/12/2022 AUDIT-C Answer Date Recorded Q1: How often do you have a drink containing alc ohol? Monthly or less 04/18/2023 Q2: How many drinks containi ng alcohol do you have on a typical day when you are drinking? 1 or 2 04/18/2023 Q3: How often do you have si x or more drinks on one occasion? Never 04/18/2023 PHQ-2 Answer Date Recorded Patient Health Questionnaire-2 Score 0 08/22/2024 Hunger Vital Sign Answer Date Recorded Within the past 12 months, y ou worried that your food would run out before you got the money to buy more. Never true 07/27/20 22 Within the past 12 months, t he food you bought just didn't last and you didn't have money to get more. 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 Gender Identity Not on file Sexual Orientation Not on file Last Filed Vital Signs Vital Sign Reading Time Taken Comments Blood Pressure 146/53 04/18/2023 1:30 PM CDT Pulse 66 04/18/2023 1:30 PM CDT Temperature 36.6 C (97.9 F) 04/18/2023 11:38 AM CDT Respiratory Rate 12 04/18/2023 1:30 PM CDT Oxygen Saturation 94% 04/18/2023 1:30 PM CDT Inhaled Oxygen Concentration - - Weight 100.7 kg (222 lb) 04/18/2023 7:25 AM CDT Height 172.7 cm (5' 8 ) 04/18/2023 7:25 AM CDT Body Mass Index 33.75 04/18/2023 7:25 AM CDT Plan of Treatment Health Maintenance Due Date Last Done Comments BONE DENSITY TESTING 1945 DTAP/TDAP/TD VACCINES (1 - Tdap) 1964 PNEUMOCOCCAL VACCINE 50+ (1 of 1 - PCV) 1995 ZOSTER VACCINE (1 of 2) 1995 Respiratory Syncytial Virus (RSV) Vaccine Pt: or over 60 yrs (1 - 1-dose 75+ series) 2020 COVID-19 VACCINE (3 2023-2 5 season) 2024 10/19/2020, 09/10/2020 MEDICARE AWV CALENDAR YEAR 2024 INFLUENZA VACCINE (Season Ended) 2025 05/18/2021, 04/13/2020, 05/25/2014 DEPRESSION SCREENING Completed 08/29/2024, 05/16/2023 HEPATITIS B VACCINE Aged Out No longe r eligible based on patient's age to complete this topic HIB VACCINE Aged Out No longer eligi ble based on patient's age to complete this topic HPV VACCINE Aged Out No longer eligi ble based on patient's age to complete this topic MENINGOCOCCAL (Group B) VACCINE SHARED DECISION-MAKING Aged Out No longer eligible based on patient's age to complete this topic MENINGOCOCCAL GROUPS A/C/Y/W VACCINE Aged Out No longer eligible b ased on patient's age to complete this topic Medical Devices Implanted Type Area Glass Furnace Tender Device Identifier Shelf Expiration Date Model / Serial / Lot Lizandro Bone Willow-G Hv 40/20 Implanted:Qty: 1 on 07/27/2022 by Malcolm Gama MD at [facility] Left: Knee [employer] 04/27/2023 [id number] / / [id number] Cmpnt Ptlr Std 28mm 3 Pg Kn Ser A Implanted:Qty: 1 on 07/27/2022 by Malcolm Gama MD at [facility] Left: Knee [employer] 05/24/2027 [id number] / / [id number] Tray Tib 71mm Kn Cocr I Beam Implanted:Qty: 1 on 07/27/2022 by Malcolm Gama MD at [facility] Left: Knee [employer] 06/01/2032 [id number] / / [id number] Cmpnt Fem Kn Lt Cr Cmnt Prm Vngrd Intlk 65mm Implanted:Qty: 1 on 07/27/2022 by Malcolm Gama MD at [facility] Left: Knee [employer] 06/22/2032 [id number] / / [id number] Brng [id number] Vngrd Arcm Kn Ant Stab Implanted:Qty: 1 on 07/27/2022 by Malcolm Gama MD at [facility] Left: Knee [employer] 02/22/2027 [id number] / / [id number] 1.9x36 Snapoff Screw Implanted:Qty: 1 on 04/18/2023 by Gama Tyler DO at [facility] Right: Foot [employer] AR-9919-36 / / Sys Fx Cpr Vpr Implanted:Qty: 1 on 04/18/2023 by Gama Tyler DO at [facility] Right: Foot [employer] 11/28/2027 AR-[id number] / / [id number] 2.4x44 Snap Off Screw Implanted:Qty: 1 on 04/18/2023 by Gama Tyler DO at [facility] Right: Foot [employer] AR-9924-44 / / 2.4x38 Snap Off Screw Implanted:Qty: 1 on 04/18/2023 by Gama Tyler DO at [facility] Right: Foot [employer] AR-9924-38 / / Explanted Type Area Glass Furnace Tender Device Identifier Shelf Expiration Date Model / Serial / Lot K-Wire 9.0in X .062in Explanted:Qty: 1 on 04/18/[address] [facility] Right: Foot [employer] 02/22/[id number] / / [id number] Insurance [employer] MEDICARE ADV Advance Directives * Full Code (Latest Code Status on File) Date Activated Date Inactivated Comments 07/27/2022 9:40 AM 07/28/2022 1:51 PM Care Teams Java Programming Professor Relationship Specialty Start Date End Date Johnathan Jones DO PCP - General Internal Medicine 04/01/21 [place] [id number] [address] Surgeon Orthopedic Surgery 04/01/21 Amandeep Jorgensen MD [address] [address] Cardiovascular Disease 12/28/21
--- OUTSIDE RECORDS SUMMARY | 2024-12-09 11:24 | XMS_ITS | Encounter Summary ---
Author Organization [facility] Address [address] 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 Historical Provider [facility] Final Result * CARDIOLOGY REPORT (10/11/2015) Anatomical Region Laterality Modality Other Narrative 10/11/2015 Ordered by an unspecified provider. us Historical Provider [facility] Final Result documented in this encounter Visit Diagnoses Not on filedocumented in this encounter Care Teams Gas Desulfurizer Relationship Specialty Start Date End Date Johnathan Jones DO PCP - General 10/05/16 aTlib Glass MD [address] [facility] [address] [place] [address] Consulting Physician Neurology 01/03/22 documented as of this encounter
[2024-12-09 13:52] LABS: Basophils Percent Auto 0.4 % (0.2-1.2); Eosinophils Absolute Auto 0.1 K/mm3 (0-0.3); Hematocrit 37.9 % (37.0-47.0); Hemoglobin 11.8 g/dL (12.0-15.0); Immature Granulocyte Absolute 0.02 K/mm3 (0.00-0.031); Immature Granulocyte Percent A 0.4 % (0-0.5); Lymphocytes Absolute Auto 1.11 K/mm3 (0.9-3.2); Lymphocytes Percent Auto 24.9 % (18.3-44.2); Mean Corpuscular HGB Conc 31.1 g/dl (32-36); Mean Corpuscular Hemoglobin 30.6 pg (26-34); Mean Corpuscular Volume 98.4 fl (80-100); Mean Platelet Volume 10.4 fl (7.4-10.4); Monocytes Absolute Auto 0.4 K/mm3 (0.1-0.6); Monocytes Percent Auto 8.7 % (2.6-8.5); Neutrophils Absolute Auto 2.8 K/mm3 (1.3-6.7); Neutrophils Percent Auto 63.6 % (45.5-73.1); Platelet Count Result 220 k/mm3 (150-375); Red Blood Count 3.85 M/mm3 (4.2-5.4); Red Cell Distribution Width 13.2 % (11.5-14.5); White Blood Count 4.5 K/mm3 (4.5-10.0)
[2024-12-09 16:08] LABS: Alanine Aminotransferase 17 U/L (6-35); Alkaline Phosphatase 31 U/L (38-126); Anion Gap 6 mmol/L (4-12); Aspartate Amino Transferase 32 U/L (14-36); Bilirubin,Total 0.2 mg/dL (0.2-1.3); Blood Urea Nitrogen 30 mg/dL (7-17); Calcium 8.9 mg/dL (8.4-10.2); Carbon Dioxide 30 mmol/L (22-30); Chloride 101 mmol/L (98-107); Estimated Glomerular Filt Rate > 60; Glucose 90 mg/dL (65-110); Potassium 4.1 mmol/L (3.4-5.0); Sodium 137 mmol/L (137-145)
== END 2024-12-09 11:01 | disposition home or self-care (01) ==
PROVIDERS: PCP Internal Medicine; Visit Provider Nurse Practitioner
DX: D64.9 Anemia, unspecified (principal); F41.9 Anxiety disorder, unspecified; I10 Essential (primary) hypertension; R53.83 Other fatigue
CPT/HCPCS: 36415; 80053; 82728; 84443; 85025